=== PATIENT | male | born 1950 | race Caucasian/White ===

== ENCOUNTER 2020-11-11 19:03 | Inpatient (IN) ==
[2020-11-11] MEDS ORDERED: Isovue-370 500 ML BOTTLE IVP ONE (20:52)
[2020-11-11 21:10] LABS: Bilirubin,Urine Negative (Negative); Blood,Urine Large (Negative); Clarity,Urine Turbid (Clear); Color,Urine Light-Red (Yellow); Glucose,Urine (UA) 150 mg/dL (Normal); Ketones,Urine Negative (Negative); Leukocyte Esterase,Urine Small (Negative); Nitrite,Urine Negative (Negative); PH,Urine 6.5 pH Units (5.0-8.0); Protein,Urine 200 mg/dL (Neg-Trace); Urobilinogen,Urine Normal (Normal)
[2020-11-11 21:57] LABS: Basophils # 0.1 K/mcL (0.0-0.2); Eosinophils # 0.3 K/mcL (0.0-0.6); Hematocrit 40.9 % (37.5-50.1); Hemoglobin 13.7 g/dL (12.9-16.9); Immature Granulocytes % 0.4 % (0-4); Lymphocytes # 2.4 K/mcL (0.6-4.6); Lymphocytes % 25.2 %; Mean Corpuscular HGB Conc 33.5 g/dL (31.6-35.5); Mean Corpuscular Hemoglobin 30.6 pg (28.0-33.3); Mean Corpuscular Volume 91.3 fL (83.0-100.0); Mean Platelet Volume 10.6 fL (9.4-12.4); Monocytes % 10.1 %; Neutrophils # 5.7 K/mcL (1.6-8.9); Platelet Count 225 K/mcL (140-400); Red Blood Count 4.48 M/mcL (4.19-5.50); Red Cell Distribution Width 13.5 % (11.5-14.5); Segmented Neutrophils % 60.3 %; White Blood Count 9.5 K/mcL (4.3-11.1)
[2020-11-11 22:15] LABS: BUN/Creatinine Ratio 20 (6-26); Blood Urea Nitrogen 22 mg/dL (8-23); Calcium 9.6 mg/dL (8.6-10.3); Carbon Dioxide 22 mEq/L (23-29); Chloride 102 mEq/L (98-107); Glucose 173 mg/dL (70-105); Osmolality,Calculated 287 (280-300); Potassium 3.9 mEq/L (3.5-5.1); Sodium 135 mEq/L (136-145); eGFR For African Americans > 60 (> 60); eGFR For Non-African Americans > 60 (> 60)
[2020-11-11] MEDS ORDERED: Ondansetron 4 MG/2 ML VIAL IVP ONE (22:28)
[2020-11-11] MEDS ORDERED: 0.9 % Sodium Chloride 1,000 ML IVC SCH (23:45)
[2020-11-11] MEDS ORDERED: Naloxone 0.4 MG/ML INJ IVP PRN (23:56)
[2020-11-11] MEDS ORDERED: Acetaminophen 325 MG TABLET PO PRN (23:56)
[2020-11-12] MEDS ORDERED: *HR* HYDROmorphone (PF) 1 MG/ML SYRINGE IVP PRN ×2 (02:32→08:21)
[2020-11-12] MEDS ORDERED: *HR* Dextrose 50 % in Water (Vial) 50 ML VIAL IVP PRN (03:20)
[2020-11-12] MEDS ORDERED: Dextrose Gel 15 GM/37.5 ML TUBE PO PRN ×2 (03:20)
[2020-11-12] MEDS ORDERED: D5% in Water 1,000 ML IVC PRN (03:20)
[2020-11-12 06:33] LABS: Hematocrit 40.7 % (37.5-50.1); Hemoglobin 13.6 g/dL (12.9-16.9); Mean Corpuscular HGB Conc 33.4 g/dL (31.6-35.5); Mean Corpuscular Hemoglobin 30.2 pg (28.0-33.3); Mean Corpuscular Volume 90.4 fL (83.0-100.0); Mean Platelet Volume 11.1 fL (9.4-12.4); Platelet Count 218 K/mcL (140-400); Red Cell Distribution Width 13.6 % (11.5-14.5)
[2020-11-12 06:37] LABS: White Blood Count 14.3 K/mcL (4.3-11.1)
[2020-11-12 06:41] LABS: INR 1.1; Prothrombin Time 12.5 Seconds (9.4-12.1)
[2020-11-12 06:44] LABS: Activated Partial Thrombo Time 27.5 Seconds (26.0-36.0)
[2020-11-12 06:55] LABS: BUN/Creatinine Ratio 17 (6-26); Blood Urea Nitrogen 23 mg/dL (8-23); Calcium 9.4 mg/dL (8.6-10.3); Carbon Dioxide 24 mEq/L (23-29); Chloride 101 mEq/L (98-107); Glucose 310 mg/dL (70-105); Osmolality,Calculated 293 (280-300); Potassium 4.1 mEq/L (3.5-5.1); Sodium 134 mEq/L (136-145); eGFR For African Americans > 60 (> 60); eGFR For Non-African Americans 54 (> 60)
[2020-11-12] MEDS ORDERED: *HR* OxyCODONE Immed Rel 5 MG TABLET PO PRN (08:19)
[2020-11-12] MEDS: Insulin LISPRO 300 UNITS/3 ML VIAL SUBQ SCH ×3 (08:32→17:03)
[2020-11-12] MEDS: Ondansetron 4 MG/2 ML VIAL IVP PRN ×2 (08:41→20:58)
[2020-11-12] MEDS: *HR* OxyCODONE Immed Rel 5 MG TABLET PO PRN (10:18)
[2020-11-12] MEDS: Acetaminophen IV 1,000 MG/100 ML BAG IVPB SCH ×2 (11:45→17:03)
[2020-11-12] MEDS: amLODIPine 5 MG TABLET PO SCH (12:55)
[2020-11-12] MEDS ORDERED: Isovue-370 500 ML BOTTLE IVP ONE (13:20)
[2020-11-12] MEDS: hydrALAZINE 25 MG TABLET PO SCH ×2 (16:59→19:10)
[2020-11-12] MEDS ORDERED: Insulin LISPRO 300 UNITS/3 ML VIAL SUBQ SCH (21:00)
[2020-11-13] MEDS: Acetaminophen IV 1,000 MG/100 ML BAG IVPB SCH ×5 (00:05→19:02)
[2020-11-13] MEDS: *HR* OxyCODONE Immed Rel 5 MG TABLET PO PRN (00:05)
[2020-11-13 05:20] LABS: Basophils % 0.2 %; Hematocrit 42.4 % (37.5-50.1); Hemoglobin 14.1 g/dL (12.9-16.9); Immature Granulocytes % 0.7 % (0-4); Lymphocytes # 1.1 K/mcL (0.6-4.6); Lymphocytes % 5.4 %; Mean Corpuscular HGB Conc 33.3 g/dL (31.6-35.5); Mean Corpuscular Hemoglobin 30.7 pg (28.0-33.3); Mean Corpuscular Volume 92.4 fL (83.0-100.0); Mean Platelet Volume 10.8 fL (9.4-12.4); Monocytes # 1.9 K/mcL (0.0-1.3); Monocytes % 9.3 %; Neutrophils # 16.7 K/mcL (1.6-8.9); Platelet Count 223 K/mcL (140-400); Red Blood Count 4.59 M/mcL (4.19-5.50); Red Cell Distribution Width 14.2 % (11.5-14.5); Segmented Neutrophils % 84.4 %; White Blood Count 19.8 K/mcL (4.3-11.1)
[2020-11-13 05:43] LABS: Calcium 9.7 mg/dL (8.6-10.3)
[2020-11-13] MEDS: hydrALAZINE 25 MG TABLET PO SCH ×3 (08:27→19:48)
[2020-11-13] MEDS: amLODIPine 5 MG TABLET PO SCH (08:27)
[2020-11-13] MEDS: Insulin LISPRO 300 UNITS/3 ML VIAL SUBQ SCH ×4 (08:27→19:48)
[2020-11-13] MEDS ORDERED: Isovue-300 50ML VIAL ONE (08:49)
[2020-11-13] MEDS ORDERED: *HR* Propofol 200 MG/20 ML VIAL IVP ONE (08:50)
[2020-11-13] MEDS ORDERED: *HR* FentaNYL (PF) 100 MCG/2 ML VIAL ONE ×2 (08:50→11:24)
[2020-11-13] MEDS ORDERED: Ascorbic Acid 500 MG TABLET PO SCH (09:00)
[2020-11-13] MEDS ORDERED: NON-FORMULARY MEDICATION 1 EACH EACH (Atorvastatin Calcium [Lipitor] 20 MG Tablet) PO SCH (09:00)
[2020-11-13] MEDS ORDERED: DilTIAZem CD (24hr) 120 MG CAP.ER.24H PO SCH (09:00)
[2020-11-13] MEDS ORDERED: Lidocaine -MPF 2% 2 ML VIAL ONE (09:20)
[2020-11-13] MEDS ORDERED: Ondansetron 4 MG/2 ML VIAL ONE (09:20)
[2020-11-13] MEDS ORDERED: *HR* OxyCODONE Immed Rel 5 MG TABLET PO PRN ×3 (09:32→12:38)
[2020-11-13] MEDS ORDERED: Ondansetron 4 MG/2 ML VIAL IVP PRN ×2 (09:32→12:38)
[2020-11-13] MEDS ORDERED: Morphine Sulfate 2 MG/ML SYRINGE IVP PRN (09:32)
[2020-11-13] MEDS ORDERED: CeFAZolin Syr 2,000MG/20 ML 2,000 MG/20 ML SYRINGE IVPB ONE (10:00)
[2020-11-13 10:03] LABS: Adenovirus Not Detected (Not Detect); Bordetella Pertussis Not Detected (Not Detect); Chlamydophila pneumoniae Not Detected (Not Detect); Coronavirus 229E Not Detected (Not Detect); Coronavirus HKU1 Not Detected (Not Detect); Coronavirus NL63 Not Detected (Not Detect); Coronavirus OC43 Not Detected (Not Detect); Human Metapneumovirus Not Detected (Not Detect); Human Rhinovirus/Enterovirus Not Detected (Not Detect); Influenza A Subtype 2009 H1 Not Detected (Not Detect); Influenza B Not Detected (Not Detect); Mycoplasma pneumoniae Not Detected (Not Detect); Parainfluenza Virus 1 Not Detected (Not Detect); Parainfluenza Virus 2 Not Detected (Not Detect); Parainfluenza Virus 3 Not Detected (Not Detect); Parainfluenza Virus 4 Not Detected (Not Detect); Respiratory Syncytial Virus Not Detected (Not Detect); SARS-CoV-2 Not Detected (Not Detect)
[2020-11-13] MEDS ORDERED: 0.9 % Sodium Chloride 1,000 ML IVC SCH (11:15)
[2020-11-13] MEDS ORDERED: *HR* HYDROmorphone (PF) 1 MG/ML SYRINGE IVP PRN (12:38)
[2020-11-13] MEDS ORDERED: Dextrose Gel 15 GM/37.5 ML TUBE PO PRN ×2 (12:38)
[2020-11-13] MEDS ORDERED: *HR* Dextrose 50 % in Water (Vial) 50 ML VIAL IVP PRN (12:38)
[2020-11-13] MEDS ORDERED: Naloxone 0.4 MG/ML INJ IVP PRN (12:38)
[2020-11-13] MEDS ORDERED: D5% in Water 1,000 ML IVC PRN (12:38)
[2020-11-13] MEDS: 0.9 % Sodium Chloride 1,000 ML IVC SCH ×2 (13:44→23:52)
[2020-11-13] MEDS: Piperacillin/Tazobactam 3.375 GM in 0.9 % Sodium Chloride Mini Bag 100 ML IVPB SCH (16:44)
[2020-11-13 19:10] LABS: Bilirubin,Urine Negative (Negative); Blood,Urine Large (Negative); Clarity,Urine Clear (Clear); Color,Urine Light-Orange (Yellow); Glucose,Urine (UA) 200 mg/dL (Normal); Ketones,Urine Trace mg/dL (Negative); Leukocyte Esterase,Urine Small (Negative); Nitrite,Urine Negative (Negative); PH,Urine 6.5 pH Units (5.0-8.0); Protein,Urine >=300 mg/dL (Neg-Trace); RBC,Urine TNTC per hpf (0-3); Specific Gravity,Urine > 1.030 (1.010-1.025); Urobilinogen,Urine Normal (Normal); WBC,Urine TNTC per hpf (0-3)
[2020-11-13] MEDS: Insulin DETEMIR 100 UNIT/ML X5UNITS SUBQ SCH (19:48)
[2020-11-13] MEDS ORDERED: Insulin DETEMIR 100 UNIT/ML X5UNITS SUBQ SCH (21:00)
[2020-11-14] MEDS: Acetaminophen IV 1,000 MG/100 ML BAG IVPB SCH ×2 (00:16→05:56)
[2020-11-14] MEDS: Piperacillin/Tazobactam 3.375 GM in 0.9 % Sodium Chloride Mini Bag 100 ML IVPB SCH ×3 (02:37→18:34)
[2020-11-14 03:13] LABS: Basophils # 0.1 K/mcL (0.0-0.2); Basophils % 0.4 %; Eosinophils # 0.1 K/mcL (0.0-0.6); Eosinophils % 0.5 %; Hematocrit 38.6 % (37.5-50.1); Hemoglobin 12.8 g/dL (12.9-16.9); Immature Granulocytes % 0.7 % (0-4); Lymphocytes # 1.7 K/mcL (0.6-4.6); Lymphocytes % 10.2 %; Mean Corpuscular HGB Conc 33.2 g/dL (31.6-35.5); Mean Corpuscular Hemoglobin 30.9 pg (28.0-33.3); Mean Corpuscular Volume 93.2 fL (83.0-100.0); Mean Platelet Volume 10.8 fL (9.4-12.4); Monocytes # 1.6 K/mcL (0.0-1.3); Monocytes % 9.3 %; Neutrophils # 13.2 K/mcL (1.6-8.9); Platelet Count 193 K/mcL (140-400); Red Blood Count 4.14 M/mcL (4.19-5.50); Red Cell Distribution Width 14.1 % (11.5-14.5); Segmented Neutrophils % 78.9 %; White Blood Count 16.7 K/mcL (4.3-11.1)
[2020-11-14 03:33] LABS: Calcium 8.7 mg/dL (8.6-10.3); Potassium 3.6 mEq/L (3.5-5.1)
[2020-11-14] MEDS: Ascorbic Acid 500 MG TABLET PO SCH (07:52)
[2020-11-14] MEDS: hydrALAZINE 25 MG TABLET PO SCH ×3 (07:53→20:01)
[2020-11-14] MEDS: DilTIAZem CD (24hr) 120 MG CAP.ER.24H PO SCH (07:53)
[2020-11-14] MEDS: Insulin LISPRO 300 UNITS/3 ML VIAL SUBQ SCH ×4 (07:54→20:02)
[2020-11-14] MEDS ORDERED: amLODIPine 5 MG TABLET PO SCH (09:00)
[2020-11-14] MEDS ORDERED: Acetaminophen 325 MG TABLET PO PRN (09:58)
[2020-11-14] MEDS: 0.9 % Sodium Chloride 1,000 ML IVC SCH (16:58)
[2020-11-14] MEDS: Insulin DETEMIR 100 UNIT/ML X5UNITS SUBQ SCH (20:03)
[2020-11-15 02:21] LABS: Basophils % 0.3 %; Eosinophils # 0.1 K/mcL (0.0-0.6); Eosinophils % 0.8 %; Hematocrit 38.9 % (37.5-50.1); Hemoglobin 12.7 g/dL (12.9-16.9); Immature Granulocytes % 0.7 % (0-4); Lymphocytes # 1.7 K/mcL (0.6-4.6); Lymphocytes % 12.8 %; Mean Corpuscular HGB Conc 32.6 g/dL (31.6-35.5); Mean Platelet Volume 10.4 fL (9.4-12.4); Monocytes # 1.2 K/mcL (0.0-1.3); Neutrophils # 9.9 K/mcL (1.6-8.9); Platelet Count 191 K/mcL (140-400); Red Blood Count 4.23 M/mcL (4.19-5.50); Red Cell Distribution Width 13.9 % (11.5-14.5); Segmented Neutrophils % 76.4 %; White Blood Count 12.9 K/mcL (4.3-11.1)
[2020-11-15] MEDS: Piperacillin/Tazobactam 3.375 GM in 0.9 % Sodium Chloride Mini Bag 100 ML IVPB SCH ×2 (02:22→11:26)
[2020-11-15 02:39] LABS: BUN/Creatinine Ratio 21 (6-26); Blood Urea Nitrogen 25 mg/dL (8-23); Calcium 8.6 mg/dL (8.6-10.3); Carbon Dioxide 25 mEq/L (23-29); Chloride 104 mEq/L (98-107); Glucose 225 mg/dL (70-105); Osmolality,Calculated 295 (280-300); Potassium 3.6 mEq/L (3.5-5.1); Sodium 137 mEq/L (136-145); eGFR For African Americans > 60 (> 60); eGFR For Non-African Americans > 60 (> 60)
[2020-11-15] MEDS: 0.9 % Sodium Chloride 1,000 ML IVC SCH (03:33)
[2020-11-15] MEDS: DilTIAZem CD (24hr) 120 MG CAP.ER.24H PO SCH (07:43)
[2020-11-15] MEDS: Ascorbic Acid 500 MG TABLET PO SCH (07:43)
[2020-11-15] MEDS: Insulin LISPRO 300 UNITS/3 ML VIAL SUBQ SCH ×2 (07:44→11:27)
[2020-11-15] MEDS: hydrALAZINE 25 MG TABLET PO SCH (07:44)
[2020-11-15 11:10] VITALS: BP 167/79
== END 2020-11-15 13:19 | disposition home or self-care (01) | DRG 660 ==
LOC: EMEROOARM 19:03 → 2ANU 19:03 → SUATTDRO 23:53 → 2ANU 11-12 00:45 → SUATTDRO 11-12 11:27
PROVIDERS: ADMIT Internal Medicine; ATTEND Internal Medicine

== ENCOUNTER 2020-12-13 07:44 | Inpatient (IN) ==
[2020-12-13] MEDS ORDERED: CeFAZolin Syr 2,000MG/20 ML 2,000 MG/20 ML SYRINGE IVPB ONE (08:16)
[2020-12-13] MEDS ORDERED: Ringers Solution, Lactated 1,000 ML IVC SCH ×2 (08:30→09:15)
[2020-12-13] MEDS ORDERED: Acetaminophen IV 1,000 MG/100 ML BAG IVPB PRN (09:04)
[2020-12-13] MEDS ORDERED: *HR* OxyCODONE Immed Rel 5 MG TABLET PO PRN ×2 (09:04→18:12)
[2020-12-13] MEDS ORDERED: Ondansetron 4 MG/2 ML VIAL IVP PRN ×2 (09:04→16:27)
[2020-12-13] MEDS ORDERED: *HR* HYDROmorphone PF 0.5 MG/0.5 ML SYRINGE IVP PRN (09:04)
[2020-12-13] MEDS ORDERED: Lidocaine -MPF 2% 2 ML VIAL ONE (09:12)
[2020-12-13] MEDS ORDERED: *HR* Propofol 200 MG/20 ML VIAL IVP ONE (09:12)
[2020-12-13] MEDS ORDERED: *HR* FentaNYL (PF) 100 MCG/2 ML VIAL ONE ×2 (09:12→14:49)
[2020-12-13] MEDS ORDERED: *HR* Rocuronium Bromide 50 MG/5 ML VIAL ONE ×3 (09:12→11:52)
[2020-12-13] MEDS ORDERED: Lidocaine -MPF 4% 5 ML AMPUL ONE (09:16)
[2020-12-13] MEDS ORDERED: Albumin Human 5% 25.0 GM/500 ML IV.SOLN ONE (09:53)
[2020-12-13] MEDS ORDERED: Dexmedetomidine HCl 400 MCG/100 ML MLS IVC ONE (09:54)
[2020-12-13] MEDS ORDERED: *HR* Norepinephrine 4 MG/4 ML VIAL IVC ONE (10:04)
[2020-12-13] MEDS ORDERED: Acetaminophen IV 1,000 MG/100 ML BAG IVPB ONE (10:04)
[2020-12-13] MEDS ORDERED: *HR* HYDROMORPHONE 2 MG/ML VIAL ONE (11:57)
[2020-12-13 14:21] LABS: VBG Base Excess -4 mEq/L; VBG Chloride 104 mEq/L (98-107); VBG Glucose 323 mg/dl (65-95); VBG HCO3 23 mEq/L (21-27); VBG Ionized Calcium 1.14 mmol/L (1.15-1.35); VBG Oxygen Saturation 93 %; VBG PCO2 45 mmHg (41-51); VBG PO2 74 mmHg (25-50); VBG Total CO2 24 mEq/L
[2020-12-13] MEDS ORDERED: Acetaminophen 325 MG TABLET PO PRN (16:27)
[2020-12-13] MEDS ORDERED: *HR* OxyCODONE/APAP 10/325 TABLET PO PRN (16:27)
[2020-12-13] MEDS ORDERED: CeFAZolin 2 GM/120 ML BAG IVPB SCH (16:27)
[2020-12-13] MEDS ORDERED: Dextrose Gel 15 GM/37.5 ML TUBE PO PRN ×2 (16:27)
[2020-12-13] MEDS ORDERED: D5% in Water 1,000 ML IVC PRN (16:27)
[2020-12-13] MEDS ORDERED: *HR* Dextrose 50 % in Water (Vial) 50 ML VIAL IVP PRN (16:27)
[2020-12-13] MEDS ORDERED: Naloxone 0.4 MG/ML INJ IVP PRN (16:27)
[2020-12-13] MEDS: 0.9 % Sodium Chloride 1,000 ML IVC SCH (17:05)
[2020-12-13] MEDS ORDERED: CeFAZolin 2,000 MG/50 ML BAG IVPB SCH (18:00)
[2020-12-13] MEDS ORDERED: *HR* HYDROmorphone (PF) 1 MG/ML SYRINGE IVP PRN (18:12)
[2020-12-13] MEDS: Insulin LISPRO 300 UNITS/3 ML VIAL SUBQ SCH (18:30)
[2020-12-13] MEDS: Acetaminophen IV 1,000 MG/100 ML BAG IVPB SCH (18:55)
[2020-12-13 19:30] LABS: Basophils % 0.1 %; Hematocrit 33.4 % (37.5-50.1); Hemoglobin 11.1 g/dL (12.9-16.9); Immature Granulocytes % 0.6 % (0-4); Lymphocytes # 0.5 K/mcL (0.6-4.6); Lymphocytes % 4.3 %; Mean Corpuscular HGB Conc 33.2 g/dL (31.6-35.5); Mean Corpuscular Hemoglobin 30.7 pg (28.0-33.3); Mean Corpuscular Volume 92.5 fL (83.0-100.0); Mean Platelet Volume 10.9 fL (9.4-12.4); Monocytes # 0.7 K/mcL (0.0-1.3); Monocytes % 5.9 %; Neutrophils # 11.1 K/mcL (1.6-8.9); Platelet Count 147 K/mcL (140-400); Red Blood Count 3.61 M/mcL (4.19-5.50); Segmented Neutrophils % 89.1 %; White Blood Count 12.5 K/mcL (4.3-11.1)
[2020-12-14] MEDS: 0.9 % Sodium Chloride 1,000 ML IVC SCH ×3 (01:15→23:39)
[2020-12-14] MEDS: Acetaminophen IV 1,000 MG/100 ML BAG IVPB SCH ×3 (01:16→17:15)
[2020-12-14 06:29] LABS: Basophils % 0.1 %; Hematocrit 29.9 % (37.5-50.1); Hemoglobin 9.8 g/dL (12.9-16.9); Immature Granulocytes % 0.3 % (0-4); Lymphocytes # 1.1 K/mcL (0.6-4.6); Lymphocytes % 8.1 %; Mean Corpuscular HGB Conc 32.8 g/dL (31.6-35.5); Mean Corpuscular Hemoglobin 29.8 pg (28.0-33.3); Mean Corpuscular Volume 90.9 fL (83.0-100.0); Mean Platelet Volume 10.8 fL (9.4-12.4); Monocytes # 1.2 K/mcL (0.0-1.3); Monocytes % 9.3 %; Neutrophils # 10.8 K/mcL (1.6-8.9); Platelet Count 157 K/mcL (140-400); Red Blood Count 3.29 M/mcL (4.19-5.50); Red Cell Distribution Width 14.1 % (11.5-14.5); Segmented Neutrophils % 82.2 %; White Blood Count 13.2 K/mcL (4.3-11.1)
[2020-12-14 06:44] LABS: Calcium 8.2 mg/dL (8.6-10.3); Potassium 4.2 mEq/L (3.5-5.1)
[2020-12-14] MEDS: DilTIAZem CD (24hr) 180 MG CAP.ER.24H PO SCH (08:09)
[2020-12-14] MEDS: Insulin LISPRO 300 UNITS/3 ML VIAL SUBQ SCH ×3 (08:10→17:08)
[2020-12-14] MEDS: *HR* Heparin 5,000 UNIT/ML VIAL SQ SCH ×2 (10:03→17:27)
[2020-12-14] MEDS: ceFAZolin 2,000 MG in 0.9 % Sodium Chloride 100 ML IVPB SCH (17:18)
[2020-12-15] MEDS: Acetaminophen IV 1,000 MG/100 ML BAG IVPB SCH (01:15)
[2020-12-15] MEDS: ceFAZolin 2,000 MG in 0.9 % Sodium Chloride 100 ML IVPB SCH (01:15)
[2020-12-15 04:58] LABS: Hematocrit 29.4 % (37.5-50.1); Hemoglobin 9.6 g/dL (12.9-16.9); Mean Corpuscular HGB Conc 32.7 g/dL (31.6-35.5); Mean Corpuscular Hemoglobin 29.9 pg (28.0-33.3); Mean Corpuscular Volume 91.6 fL (83.0-100.0); Mean Platelet Volume 10.9 fL (9.4-12.4); Platelet Count 131 K/mcL (140-400); Red Blood Count 3.21 M/mcL (4.19-5.50); Red Cell Distribution Width 14.1 % (11.5-14.5); White Blood Count 12.8 K/mcL (4.3-11.1)
[2020-12-15 05:14] LABS: Calcium 8.5 mg/dL (8.6-10.3); Potassium 3.7 mEq/L (3.5-5.1)
[2020-12-15] MEDS: *HR* Heparin 5,000 UNIT/ML VIAL SQ SCH ×2 (05:41→17:33)
[2020-12-15] MEDS ORDERED: Bisacodyl 10 MG RECTAL SUPPOSITORY RC ONE (06:53)
[2020-12-15] MEDS: *HR* Pioglitazone 45 MG TABLET PO SCH (08:01)
[2020-12-15] MEDS: hydroCHLOROthiazide 25 MG TABLET PO SCH (08:01)
[2020-12-15] MEDS: DilTIAZem CD (24hr) 180 MG CAP.ER.24H PO SCH (08:02)
[2020-12-15] MEDS: *HR* Metformin 850 MG TABLET PO SCH ×2 (08:03→17:33)
[2020-12-15] MEDS: Insulin LISPRO 300 UNITS/3 ML VIAL SUBQ SCH ×3 (08:03→17:30)
[2020-12-15] MEDS: Acetaminophen 325 MG TABLET PO SCH ×2 (12:06→17:34)
[2020-12-16] MEDS: Acetaminophen 325 MG TABLET PO SCH ×2 (00:20→05:44)
[2020-12-16] MEDS: *HR* Heparin 5,000 UNIT/ML VIAL SQ SCH (05:43)
[2020-12-16 08:05] VITALS: BP 146/78
[2020-12-16] MEDS: 0.9 % Sodium Chloride 1,000 ML IVC SCH (09:20)
[2020-12-16] MEDS: Insulin LISPRO 300 UNITS/3 ML VIAL SUBQ SCH (09:54)
[2020-12-16] MEDS: *HR* Pioglitazone 45 MG TABLET PO SCH (09:55)
[2020-12-16] MEDS: DilTIAZem CD (24hr) 180 MG CAP.ER.24H PO SCH (09:55)
[2020-12-16] MEDS: hydroCHLOROthiazide 25 MG TABLET PO SCH (09:56)
[2020-12-16] MEDS: *HR* Metformin 850 MG TABLET PO SCH (09:56)
== END 2020-12-16 10:41 | disposition home or self-care (01) | DRG 656 ==
LOC: SAMDAY 07:44 → 3ANU 16:26
PROVIDERS: ADMIT Urology; ATTEND Urology

== ENCOUNTER 2021-01-15 17:15 | Inpatient (IN) ==
[2021-01-15] MEDS ORDERED: Melatonin 3 MG TABLET PO PRN (21:12)
[2021-01-15] MEDS ORDERED: *HR* HYDROcodone/Acet 5/325 mg TABLET PO PRN (21:12)
[2021-01-15] MEDS ORDERED: Ondansetron 4 MG/2 ML VIAL IVP PRN (21:12)
[2021-01-15] MEDS ORDERED: Acetaminophen 325 MG TABLET PO PRN (21:12)
[2021-01-15] MEDS ORDERED: Naloxone 0.4 MG/ML INJ IVP PRN (21:12)
[2021-01-15] MEDS ORDERED: D5% in Water 1,000 ML IVC PRN (21:56)
[2021-01-15] MEDS ORDERED: Dextrose Gel 15 GM/37.5 ML TUBE PO PRN ×2 (21:56)
[2021-01-15] MEDS ORDERED: *HR* Dextrose 50 % in Water (Vial) 50 ML VIAL IVP PRN (21:56)
[2021-01-15] MEDS: *HR* HYDROcodone/Acet 5/325 mg TABLET PO PRN (22:16)
[2021-01-16] MEDS: Insulin LISPRO 300 UNITS/3 ML VIAL SUBQ SCH ×5 (00:59→21:16)
[2021-01-16 02:57] LABS: Basophils % 0.3 %; Eosinophils % 0.4 %; Hematocrit 33.5 % (37.5-50.1); Hemoglobin 11.3 g/dL (12.9-16.9); Immature Granulocytes % 0.4 % (0-4); Lymphocytes # 1.5 K/mcL (0.6-4.6); Lymphocytes % 13.3 %; Mean Corpuscular HGB Conc 33.7 g/dL (31.6-35.5); Mean Corpuscular Hemoglobin 30.4 pg (28.0-33.3); Mean Corpuscular Volume 90.1 fL (83.0-100.0); Mean Platelet Volume 10.5 fL (9.4-12.4); Monocytes # 1.2 K/mcL (0.0-1.3); Monocytes % 10.7 %; Neutrophils # 8.6 K/mcL (1.6-8.9); Platelet Count 178 K/mcL (140-400); Red Blood Count 3.72 M/mcL (4.19-5.50); Red Cell Distribution Width 14.1 % (11.5-14.5); Segmented Neutrophils % 74.9 %; White Blood Count 11.4 K/mcL (4.3-11.1)
[2021-01-16 03:09] LABS: Calcium 9.4 mg/dL (8.6-10.3)
[2021-01-16] MEDS: *HR* HYDROcodone/Acet 5/325 mg TABLET PO PRN (05:55)
[2021-01-16] MEDS: *HR* OxyCODONE/APAP 5/325 TABLET PO PRN ×2 (10:14→17:36)
[2021-01-16] MEDS: DilTIAZem CD (24hr) 180 MG CAP.ER.24H PO SCH (15:15)
[2021-01-17] MEDS: *HR* OxyCODONE/APAP 5/325 TABLET PO PRN (04:21)
[2021-01-17 05:33] LABS: Hemoglobin 12.7 g/dL (12.9-16.9); Mean Corpuscular HGB Conc 32.6 g/dL (31.6-35.5); Mean Corpuscular Hemoglobin 29.7 pg (28.0-33.3); Mean Corpuscular Volume 91.3 fL (83.0-100.0); Mean Platelet Volume 10.6 fL (9.4-12.4); Platelet Count 190 K/mcL (140-400); Red Blood Count 4.27 M/mcL (4.19-5.50); Red Cell Distribution Width 14.2 % (11.5-14.5); White Blood Count 10.6 K/mcL (4.3-11.1)
[2021-01-17 05:44] LABS: Calcium 9.8 mg/dL (8.6-10.3); Potassium 4.2 mEq/L (3.5-5.1)
[2021-01-17 05:49] LABS: Prothrombin Time 11.9 Seconds (9.4-12.1)
[2021-01-17] MEDS ORDERED: Morphine Sulfate 2 MG/ML SYRINGE IVP PRN (08:16)
[2021-01-17] MEDS: DilTIAZem CD (24hr) 180 MG CAP.ER.24H PO SCH (09:05)
[2021-01-17] MEDS: Aspirin 81 MG TAB.CHEW PO SCH (09:06)
[2021-01-17] MEDS: Ascorbic Acid 500 MG TABLET PO SCH (09:06)
[2021-01-17] MEDS: Insulin LISPRO 300 UNITS/3 ML VIAL SUBQ SCH ×4 (09:07→21:53)
[2021-01-17] MEDS: *HR* HYDROcodone/Acet 5/325 mg TABLET PO PRN (09:24)
[2021-01-17] MEDS ORDERED: *HR* HYDROmorphone (PF) 1 MG/ML SYRINGE IVP PRN (12:11)
[2021-01-17] MEDS ORDERED: *HR* HYDROmorphone (PF) 1 MG/ML SYRINGE IVP STA (12:11)
[2021-01-17] MEDS ORDERED: *HR* FentaNYL (PF) 100 MCG/2 ML VIAL ONE ×2 (14:29→15:39)
[2021-01-17] MEDS ORDERED: Ondansetron 4 MG/2 ML VIAL ONE (14:29)
[2021-01-17] MEDS ORDERED: Lidocaine -MPF 2% 2 ML VIAL ONE (14:29)
[2021-01-17] MEDS ORDERED: *HR* Midazolam HCl 2 MG/2 ML VIAL ONE (14:30)
[2021-01-17] MEDS ORDERED: *HR* Propofol 200 MG/20 ML VIAL IVP ONE (14:30)
[2021-01-17] MEDS ORDERED: *HR* Succinylcholine 200 MG/10 ML VIAL IVP ONE (14:33)
[2021-01-17] MEDS ORDERED: Ondansetron 4 MG/2 ML VIAL IVP PRN ×2 (15:04→17:05)
[2021-01-17] MEDS ORDERED: Nitroglycerin 0.4 MG TAB.SUBL SL PRN (15:04)
[2021-01-17] MEDS ORDERED: Naloxone 0.4 MG/ML INJ IVP PRN (15:04)
[2021-01-17] MEDS ORDERED: Albuterol 2.5 MG/3 ML NEBULIZER IH PRN (15:04)
[2021-01-17] MEDS ORDERED: *HR* Rocuronium Bromide 50 MG/5 ML VIAL ONE (15:40)
[2021-01-17] MEDS ORDERED: ceFAZolin 2,000 MG in Water for inj. (sterile) 20 ML IVP ONE (15:47)
[2021-01-17] MEDS ORDERED: Sugammadex Sodium 200 MG/2 ML VIAL IV ONE (16:11)
[2021-01-17] MEDS ORDERED: Acetaminophen IV 1,000 MG/100 ML BAG IVPB ONE (16:12)
[2021-01-17] MEDS ORDERED: Acetaminophen IV 0 MG/0 ML BAG IVPB ONE (16:20)
[2021-01-17] MEDS ORDERED: Sennosides 8.6 MG TABLET PO PRN (17:05)
[2021-01-17] MEDS ORDERED: MOM Conc 10 ML UD.LIQ PO PRN (17:05)
[2021-01-17] MEDS: *HR* HYDROmorphone (PF) 1 MG/ML SYRINGE IVP PRN ×4 (17:25→17:40)
[2021-01-17] MEDS: *HR* FentaNYL (PF) 100 MCG/2 ML VIAL IVP PRN ×3 (17:45→17:54)
[2021-01-17] MEDS: Ringers Solution, Lactated 1,000 ML IVC SCH (19:00)
[2021-01-17] MEDS ORDERED: *HR* Metoprolol 5 MG/5 ML VIAL IVP ONE (21:56)
[2021-01-18] MEDS: CeFAZolin 2 GM/120 ML BAG IVPB SCH ×2 (01:15→08:36)
[2021-01-18] MEDS ORDERED: *HR* Metoprolol 5 MG/5 ML VIAL IVP ONE (04:01)
[2021-01-18 05:32] LABS: Hematocrit 36.5 % (37.5-50.1); Hemoglobin 12.1 g/dL (12.9-16.9)
[2021-01-18 07:31] LABS: Calcium 9.5 mg/dL (8.6-10.3); Potassium 4.4 mEq/L (3.5-5.1)
[2021-01-18] MEDS: Ascorbic Acid 500 MG TABLET PO SCH (08:31)
[2021-01-18] MEDS: Aspirin 81 MG TAB.CHEW PO SCH (08:34)
[2021-01-18] MEDS: DilTIAZem CD (24hr) 180 MG CAP.ER.24H PO SCH (08:35)
[2021-01-18] MEDS: Insulin LISPRO 300 UNITS/3 ML VIAL SUBQ SCH ×2 (08:37→11:20)
[2021-01-18] MEDS: Ringers Solution, Lactated 1,000 ML IVC SCH (08:50)
[2021-01-18] MEDS ORDERED: hydroCHLOROthiazide 25 MG TABLET PO SCH (09:00)
[2021-01-18 10:40] VITALS: BP 132/77
== END 2021-01-18 15:29 | disposition home health service (06) | DRG 493 ==
LOC: 3ANU → SUATTDRO 20:42
PROVIDERS: ADMIT Internal Medicine; ATTEND Student in an Organized Health Care Education/Training Program

== ENCOUNTER 2021-09-10 14:30 | Inpatient (IN) ==
[2021-09-10] MEDS ORDERED: Gadolinium Contrast Agent (WT Based) IV PRN (17:42)
[2021-09-10] MEDS ORDERED: 0.9 % Sodium Chloride 1,000 ML IVC ONE (18:25)
[2021-09-10] MEDS ORDERED: Ondansetron 4 MG/2 ML VIAL IVP ONE ×2 (18:25→20:25)
[2021-09-10] MEDS ORDERED: Ondansetron 4 MG/2 ML VIAL IVP STA (20:24)
[2021-09-10] MEDS ORDERED: Naloxone 0.4 MG/ML INJ IVP PRN (22:29)
[2021-09-10] MEDS ORDERED: *HR* OxyCODONE Immed Rel 5 MG TABLET PO PRN (22:29)
[2021-09-10] MEDS ORDERED: Ringers Solution, Lactated 1,000 ML IVC ONE (22:31)
[2021-09-10] MEDS ORDERED: Prochlorperazine 10 MG/2 ML VIAL IVP ONE (22:31)
[2021-09-10] MEDS: Acetaminophen 325 MG TABLET PO PRN (22:52)
[2021-09-10] MEDS ORDERED: D5% in Water 1,000 ML IVC PRN (23:32)
[2021-09-10] MEDS ORDERED: Dextrose Gel 15 GM/37.5 ML TUBE PO PRN ×2 (23:32)
[2021-09-11 00:36] LABS: Hematocrit 35.5 % (37.5-50.1); Hemoglobin 11.9 g/dL (12.9-16.9); Mean Corpuscular HGB Conc 33.5 g/dL (31.6-35.5); Mean Corpuscular Hemoglobin 29.7 pg (28.0-33.3); Mean Corpuscular Volume 88.5 fL (83.0-100.0); Mean Platelet Volume 9.5 fL (9.4-12.4); Platelet Count 185 K/mcL (140-400); Red Blood Count 4.01 M/mcL (4.19-5.50); Red Cell Distribution Width 17.2 % (11.5-14.5); White Blood Count 9.4 K/mcL (4.3-11.1)
[2021-09-11] MEDS: Ringers Solution, Lactated 1,000 ML IVC SCH ×2 (00:45→05:15)
[2021-09-11 01:03] LABS: Adenovirus F 40/41 PCR Not detected (Not detect); Astrovirus PCR Not detected (Not detect); C.difficile Toxin A/B Gene PCR Not detected (Not detect); Campylobacter by PCR Not detected (Not detect); Cryptosporidium by PCR Not detected (Not detect); Cyclospora cayetanensis PCR Not detected (Not detect); E. coli O157 by PCR Not detected (Not detect); Entamoeba histolytica PCR Not detected (Not detect); Enteroaggregative E.coli(EAEC) Not detected (Not detect); Enteropathogenic E.coli(EPEC) Not detected (Not detect); Enterotoxigenic E.coli (ETEC) Not detected (Not detect); Giardia lamblia PCR Not detected (Not detect); Norovirus GI/GII PCR DETECTED (Not detect); Plesiomonas shigelloides PCR Not detected (Not detect); Rotavirus A PCR Not detected (Not detect); Salmonella PCR Not detected (Not detect); Sapovirus PCR Not detected (Not detect); Shig/EnteroinvasiveE coli EIEC Not detected (Not detect); Shigalike tox-prod E coli STEC Not detected (Not detect); Vibrio PCR Not detected (Not detect); Vibrio cholerae PCR Not detected (Not detect); Yersinia enterocolitica PCR Not detected (Not detect)
[2021-09-11] MEDS: MetroNIDAZOLE 500 MG/100 ML 500 MG/100 ML BAG IVPB SCH ×3 (01:04→12:26)
[2021-09-11 01:05] LABS: Eosinophils # 0.4 K/mcL (0.0-0.6); Lymphocytes # 1.9 K/mcL (0.6-4.6); Monocytes # 1.1 K/mcL (0.0-1.3); Platelet Estimate Normal (Normal); Reactive Lymphocytes Present (Not Present)
[2021-09-11 01:38] LABS: Influenza A PCR Negative (Negative); Influenza B PCR Negative (Negative); Resp. Syncytial Virus PCR Negative (Negative)
[2021-09-11 01:40] LABS: Albumin 3.4 g/dL (3.5-5.7); Albumin/Globulin Ratio 1.4 (1.1-2.2); Bilirubin,Total 1.5 mg/dL (0.3-1.0); Calcium 7.9 mg/dL (8.6-10.3); Globulin 2.4 g/dL (2.4-3.5); Magnesium 1.3 mg/dL (1.6-2.6); Potassium 3.6 mEq/L (3.5-5.1); Total Protein 5.8 g/dL (6.4-8.9)
[2021-09-11 01:42] LABS: SARS-CoV-2 by PCR (In House) Positive (Negative)
[2021-09-11] MEDS ORDERED: Ringers Solution, Lactated 1,000 ML IVC ONE (01:46)
[2021-09-11] MEDS: *HR* Heparin 5,000 UNIT/ML VIAL SQ SCH ×3 (05:16→21:37)
[2021-09-11] MEDS: Acetaminophen 325 MG TABLET PO PRN ×2 (05:20→22:30)
[2021-09-11] MEDS: Insulin LISPRO 300 UNITS/3 ML VIAL SUBQ SCH ×4 (09:36→21:37)
[2021-09-11] MEDS: Aspirin 81 MG TAB.CHEW PO SCH (09:40)
[2021-09-11] MEDS: DilTIAZem CD (24hr) 180 MG CAP.ER.24H PO SCH (09:40)
[2021-09-11] MEDS: Ondansetron 4 MG/2 ML VIAL IVP PRN ×2 (09:42→22:29)
[2021-09-11 13:34] LABS: Bacteria,Urine Few per hpf (None-Few); Bilirubin,Urine Negative (Negative); Blood,Urine Moderate (Negative); Clarity,Urine Turbid (Clear); Color,Urine Yellow (Yellow); Glucose,Urine (UA) Normal (Normal); Granular Casts,Urine Few per lpf (None Seen); Hyaline Casts,Urine Few per lpf (None Seen); Ketones,Urine Negative (Negative); Leukocyte Esterase,Urine Large (Negative); Mucus,Urine Moderate per lpf (None-Few); Nitrite,Urine Negative (Negative); Protein,Urine 200 mg/dL (Neg-Trace); Renal Epithelial Cells,Urine Few per hpf (None-Few); Specific Gravity,Urine 1.022 (1.010-1.025); Squamous Epithelial Cell,Urine Few per hpf (None-Few); Urobilinogen,Urine Normal (Normal); WBC,Urine TNTC per hpf (0-3)
[2021-09-11] MEDS: Sodium Bicarbonate 75 MEQ in 0.45 % Sodium Chloride 1,000 ML IVC SCH ×2 (14:12→22:30)
[2021-09-11 14:23] LABS: Protein/Creatinine Ratio,Urine 1.31 mg/mg (0.00-0.20); Sodium, Urine 45.9 mEq/L
[2021-09-11] MEDS: Insulin DETEMIR 100 UNIT/ML X5UNITS SUBQ SCH (21:37)
[2021-09-12] MEDS: *HR* Heparin 5,000 UNIT/ML VIAL SQ SCH ×3 (05:12→21:12)
[2021-09-12 05:27] LABS: Hematocrit 31.9 % (37.5-50.1); Hemoglobin 10.5 g/dL (12.9-16.9); Mean Corpuscular HGB Conc 32.9 g/dL (31.6-35.5); Mean Corpuscular Hemoglobin 29.6 pg (28.0-33.3); Mean Corpuscular Volume 89.9 fL (83.0-100.0); Platelet Count 165 K/mcL (140-400); Red Blood Count 3.55 M/mcL (4.19-5.50); Red Cell Distribution Width 16.8 % (11.5-14.5); White Blood Count 5.7 K/mcL (4.3-11.1)
[2021-09-12 05:33] LABS: Albumin 3.1 g/dL (3.5-5.7); Albumin/Globulin Ratio 1.6 (1.1-2.2); Bilirubin,Direct 0.3 mg/dL (0.0-0.2); Bilirubin,Indirect 0.9 mg/dL (0.0-1.0); Bilirubin,Total 1.2 mg/dL (0.3-1.0); Calcium 7.4 mg/dL (8.6-10.3); Magnesium 1.8 mg/dL (1.6-2.6); Total Protein 5.1 g/dL (6.4-8.9)
[2021-09-12] MEDS: Aspirin 81 MG TAB.CHEW PO SCH (08:56)
[2021-09-12] MEDS: DilTIAZem CD (24hr) 180 MG CAP.ER.24H PO SCH (08:57)
[2021-09-12] MEDS: Acetaminophen 325 MG TABLET PO PRN ×2 (09:02→21:12)
[2021-09-12] MEDS: Insulin LISPRO 300 UNITS/3 ML VIAL SUBQ SCH ×4 (09:08→21:12)
[2021-09-12] MEDS: Ondansetron 4 MG/2 ML VIAL IVP PRN (12:42)
[2021-09-12] MEDS: Insulin DETEMIR 100 UNIT/ML X5UNITS SUBQ SCH (21:12)
[2021-09-13 02:41] LABS: Hematocrit 32.5 % (37.5-50.1); Mean Corpuscular HGB Conc 33.8 g/dL (31.6-35.5); Mean Corpuscular Hemoglobin 29.8 pg (28.0-33.3); Mean Corpuscular Volume 88.1 fL (83.0-100.0); Mean Platelet Volume 9.7 fL (9.4-12.4); Platelet Count 167 K/mcL (140-400); Red Blood Count 3.69 M/mcL (4.19-5.50); Red Cell Distribution Width 16.7 % (11.5-14.5)
[2021-09-13 02:58] LABS: Calcium 7.2 mg/dL (8.6-10.3)
[2021-09-13 03:18] LABS: Lymphocytes # 1.1 K/mcL (0.6-4.6); Monocytes # 0.4 K/mcL (0.0-1.3); Neutrophils # 5.5 K/mcL (1.6-8.9); Platelet Estimate Normal (Normal); Reactive Lymphocytes Present (Not Present)
[2021-09-13] MEDS: *HR* Heparin 5,000 UNIT/ML VIAL SQ SCH ×3 (05:23→21:31)
[2021-09-13] MEDS: Ondansetron 4 MG/2 ML VIAL IVP PRN (05:23)
[2021-09-13] MEDS ORDERED: 0.9 % Sodium Chloride 1,000 ML IVC SCH (08:15)
[2021-09-13] MEDS: Insulin LISPRO 300 UNITS/3 ML VIAL SUBQ SCH ×4 (09:02→20:08)
[2021-09-13] MEDS: Piperacillin/Tazobactam 3.375 GM in 0.9 % Sodium Chloride Mini Bag 100 ML IVPB SCH ×2 (09:09→20:31)
[2021-09-13] MEDS: Aspirin 81 MG TAB.CHEW PO SCH (09:10)
[2021-09-13] MEDS: DilTIAZem CD (24hr) 120 MG CAP.ER.24H PO SCH (09:10)
[2021-09-13] MEDS: Pantoprazole 40 MG VIAL IVP SCH (09:10)
[2021-09-13] MEDS: Acetaminophen 325 MG TABLET PO PRN (20:08)
[2021-09-13] MEDS ORDERED: Potassium Chloride Elixir 20 MEQ/15 ML UDC PO ONE (20:40)
[2021-09-13 21:54] LABS: Calcium 6.6 mg/dL (8.6-10.3); Magnesium 1.6 mg/dL (1.6-2.6); Potassium 3.1 mEq/L (3.5-5.1)
[2021-09-13] MEDS ORDERED: Calcium Gluconate 1gm/50mL 1 GM/50 ML BAG IVPB ONE (21:55)
[2021-09-14] MEDS: Simethicone 80 MG TAB.CHEW PO PRN ×2 (04:12→08:55)
[2021-09-14] MEDS: *HR* Heparin 5,000 UNIT/ML VIAL SQ SCH ×3 (04:12→22:34)
[2021-09-14 05:47] LABS: Basophils # 0.1 K/mcL (0.0-0.2); Basophils % 0.8 %; Eosinophils # 0.2 K/mcL (0.0-0.6); Eosinophils % 2.7 %; Hematocrit 33.4 % (37.5-50.1); Hemoglobin 11.6 g/dL (12.9-16.9); Immature Granulocytes % 1.4 % (0-4); Lymphocytes # 1.5 K/mcL (0.6-4.6); Lymphocytes % 17.4 %; Mean Corpuscular HGB Conc 34.7 g/dL (31.6-35.5); Mean Corpuscular Hemoglobin 30.4 pg (28.0-33.3); Mean Corpuscular Volume 87.7 fL (83.0-100.0); Mean Platelet Volume 10.3 fL (9.4-12.4); Monocytes # 1.3 K/mcL (0.0-1.3); Monocytes % 15.3 %; Neutrophils # 5.2 K/mcL (1.6-8.9); Platelet Count 214 K/mcL (140-400); Red Blood Count 3.81 M/mcL (4.19-5.50); Red Cell Distribution Width 16.8 % (11.5-14.5); Segmented Neutrophils % 62.4 %; White Blood Count 8.4 K/mcL (4.3-11.1)
[2021-09-14] MEDS: Ondansetron 4 MG/2 ML VIAL IVP PRN (06:01)
[2021-09-14 06:04] LABS: Potassium 3.2 mEq/L (3.5-5.1)
[2021-09-14 06:11] LABS: Platelet Estimate Normal (Normal)
[2021-09-14] MEDS: Insulin LISPRO 300 UNITS/3 ML VIAL SUBQ SCH ×4 (08:39→22:34)
[2021-09-14] MEDS: Aspirin 81 MG TAB.CHEW PO SCH (08:40)
[2021-09-14] MEDS: Pantoprazole 40 MG VIAL IVP SCH (08:40)
[2021-09-14] MEDS: DilTIAZem CD (24hr) 120 MG CAP.ER.24H PO SCH (08:40)
[2021-09-14] MEDS: Piperacillin/Tazobactam 3.375 GM in 0.9 % Sodium Chloride Mini Bag 100 ML IVPB SCH ×2 (08:55→22:33)
[2021-09-14] MEDS ORDERED: 0.9 % Sodium Chloride 1,000 ML IVC SCH (12:15)
[2021-09-14 13:24] LABS: Complement C3 138 mg/dL (87-200)
[2021-09-14 13:25] LABS: Rheumatoid Factor 11 IU/mL (Less than 14)
[2021-09-14 13:50] LABS: Vitamin D 25 Hydroxy 44 ng/mL (30-80)
[2021-09-15 01:58] LABS: Basophils # 0.1 K/mcL (0.0-0.2); Basophils % 0.7 %; Eosinophils # 0.2 K/mcL (0.0-0.6); Eosinophils % 2.2 %; Hematocrit 34.9 % (37.5-50.1); Hemoglobin 12.1 g/dL (12.9-16.9); Immature Granulocytes % 1.5 % (0-4); Lymphocytes % 22.3 %; Mean Corpuscular HGB Conc 34.7 g/dL (31.6-35.5); Mean Corpuscular Hemoglobin 30.1 pg (28.0-33.3); Mean Corpuscular Volume 86.8 fL (83.0-100.0); Mean Platelet Volume 10.3 fL (9.4-12.4); Monocytes # 1.1 K/mcL (0.0-1.3); Monocytes % 12.4 %; Platelet Count 276 K/mcL (140-400); Red Blood Count 4.02 M/mcL (4.19-5.50); Red Cell Distribution Width 16.9 % (11.5-14.5); Segmented Neutrophils % 60.9 %; White Blood Count 9.1 K/mcL (4.3-11.1)
[2021-09-15] MEDS: *HR* HYDROcodone/Acet 5/325 mg TABLET PO PRN (01:59)
[2021-09-15] MEDS: Acetaminophen 325 MG TABLET PO PRN ×2 (01:59→21:13)
[2021-09-15] MEDS: Ondansetron 4 MG/2 ML VIAL IVP PRN (01:59)
[2021-09-15 02:00] LABS: Neutrophils # 5.5 K/mcL (1.6-8.9)
[2021-09-15 02:17] LABS: Calcium 6.7 mg/dL (8.6-10.3); Potassium 3.6 mEq/L (3.5-5.1)
[2021-09-15 03:03] LABS: Platelet Estimate Normal (Normal); Reactive Lymphocytes Present (Not Present)
[2021-09-15] MEDS ORDERED: Sodium Bicarbonate 75 MEQ in 0.45 % Sodium Chloride 1,000 ML IVC SCH (03:45)
[2021-09-15] MEDS: *HR* Heparin 5,000 UNIT/ML VIAL SQ SCH ×3 (06:45→20:10)
[2021-09-15] MEDS: Piperacillin/Tazobactam 3.375 GM in 0.9 % Sodium Chloride Mini Bag 100 ML IVPB SCH ×2 (07:48→20:09)
[2021-09-15] MEDS: DilTIAZem CD (24hr) 120 MG CAP.ER.24H PO SCH (07:49)
[2021-09-15] MEDS: Aspirin 81 MG TAB.CHEW PO SCH (07:49)
[2021-09-15] MEDS: Pantoprazole 40 MG VIAL IVP SCH ×3 (07:51→20:09)
[2021-09-15] MEDS: Insulin LISPRO 300 UNITS/3 ML VIAL SUBQ SCH ×4 (08:25→20:18)
[2021-09-15] MEDS: Sodium Bicarbonate 75 MEQ in 0.45 % Sodium Chloride 1,000 ML IVC SCH ×2 (08:25→17:26)
[2021-09-15] MEDS ORDERED: Hydrocortisone Sodium Succ 100 MG/2 ML VIAL IVP STA (09:07)
[2021-09-15 10:11] LABS: Troponin I 0.03 ng/mL (< 0.04)
[2021-09-15 10:35] LABS: C-Reactive Protein > 300 mg/L (Less than 10); Thyroid Stimulating Hormone 1.595 mcIU/mL (0.340-5.600); Triiodothyronine (T3) Free 2.59 pg/mL (2.50-3.90)
[2021-09-15] MEDS: Albumin 25% 25gram/100mL 25 GM/100 ML IV.SOLN IVC SCH ×2 (12:18→14:01)
[2021-09-15] MEDS ORDERED: tiZANidine 4 MG TABLET PO ONE (21:20)
[2021-09-16] MEDS: Sodium Bicarbonate 75 MEQ in 0.45 % Sodium Chloride 1,000 ML IVC SCH ×2 (04:53→17:07)
[2021-09-16] MEDS: *HR* Heparin 5,000 UNIT/ML VIAL SQ SCH ×3 (04:53→21:15)
[2021-09-16 06:34] LABS: Eosinophils # 0.1 K/mcL (0.0-0.6); Hematocrit 28.3 % (37.5-50.1); Mean Corpuscular HGB Conc 33.9 g/dL (31.6-35.5); Mean Corpuscular Hemoglobin 29.4 pg (28.0-33.3); Mean Corpuscular Volume 86.8 fL (83.0-100.0); Platelet Count 248 K/mcL (140-400); Red Blood Count 3.26 M/mcL (4.19-5.50); Red Cell Distribution Width 16.8 % (11.5-14.5); White Blood Count 7.1 K/mcL (4.3-11.1)
[2021-09-16 07:01] LABS: Calcium 6.1 mg/dL (8.6-10.3); Potassium 3.4 mEq/L (3.5-5.1)
[2021-09-16 07:36] LABS: Hemoglobin 9.6 g/dL (12.9-16.9)
[2021-09-16 07:43] LABS: Lymphocytes # 1.9 K/mcL (0.6-4.6); Monocytes # 0.4 K/mcL (0.0-1.3); Neutrophils # 4.6 K/mcL (1.6-8.9)
[2021-09-16 07:44] LABS: Polychromasia 1+ (Not Present)
[2021-09-16 07:45] LABS: Anisocytosis 1+ (Not Present); Poikilocytosis 1+ (Not Present)
[2021-09-16 07:47] LABS: Microcytosis Present (Not Present)
[2021-09-16 07:48] LABS: Spherocytes 1+ (Not Present)
[2021-09-16] MEDS: Piperacillin/Tazobactam 3.375 GM in 0.9 % Sodium Chloride Mini Bag 100 ML IVPB SCH ×2 (10:08→21:15)
[2021-09-16] MEDS: Aspirin 81 MG TAB.CHEW PO SCH (10:09)
[2021-09-16] MEDS: Pantoprazole 40 MG VIAL IVP SCH ×2 (10:09→21:16)
[2021-09-16] MEDS: Insulin LISPRO 300 UNITS/3 ML VIAL SUBQ SCH ×4 (10:10→21:20)
[2021-09-16] MEDS: Ondansetron 4 MG/2 ML VIAL IVP PRN (21:24)
[2021-09-16] MEDS: *HR* HYDROcodone/Acet 5/325 mg TABLET PO PRN (21:24)
[2021-09-17] MEDS ORDERED: *HR* Metoprolol 5 MG/5 ML VIAL IVP ONE (00:54)
[2021-09-17 03:28] LABS: Basophils # 0.1 K/mcL (0.0-0.2); Basophils % 0.7 %; Eosinophils # 0.1 K/mcL (0.0-0.6); Eosinophils % 1.4 %; Hematocrit 34.7 % (37.5-50.1); Immature Granulocytes % 1.5 % (0-4); Lymphocytes % 23.9 %; Mean Corpuscular HGB Conc 35.7 g/dL (31.6-35.5); Mean Corpuscular Hemoglobin 30.6 pg (28.0-33.3); Mean Corpuscular Volume 85.7 fL (83.0-100.0); Mean Platelet Volume 10.1 fL (9.4-12.4); Monocytes # 0.8 K/mcL (0.0-1.3); Monocytes % 10.8 %; Neutrophils # 4.5 K/mcL (1.6-8.9); Platelet Count 427 K/mcL (140-400); Red Blood Count 4.05 M/mcL (4.19-5.50); Red Cell Distribution Width 17.1 % (11.5-14.5); Segmented Neutrophils % 61.7 %; White Blood Count 7.3 K/mcL (4.3-11.1)
[2021-09-17 03:35] LABS: Hemoglobin 12.4 g/dL (12.9-16.9); Lymphocytes # 1.7 K/mcL (0.6-4.6)
[2021-09-17 04:08] LABS: Calcium 5.9 mg/dL (8.6-10.3); Potassium 2.8 mEq/L (3.5-5.1); Uric Acid 20.1 mg/dL (2.3-7.6)
[2021-09-17] MEDS: Sodium Bicarbonate 75 MEQ in 0.45 % Sodium Chloride 1,000 ML IVC SCH ×2 (04:18→12:52)
[2021-09-17] MEDS: Calcium Gluconate 1gm/50mL 1 GM/50 ML BAG IVPB SCH ×3 (04:20→18:35)
[2021-09-17] MEDS: *HR* Heparin 5,000 UNIT/ML VIAL SQ SCH ×2 (05:08→16:18)
[2021-09-17] MEDS: Acetaminophen 325 MG TABLET PO PRN (05:08)
[2021-09-17] MEDS: Ondansetron 4 MG/2 ML VIAL IVP PRN (05:09)
[2021-09-17] MEDS ORDERED: Albumin 25% 25gram/100mL 25 GM/100 ML IV.SOLN IVPB ONE (06:25)
[2021-09-17] MEDS ORDERED: 0.9 % Sodium Chloride 500 ML IVC ONE ×2 (08:09→14:19)
[2021-09-17] MEDS ORDERED: 0.9 % Sodium Chloride 500 ML ONE (08:15)
[2021-09-17] MEDS: Aspirin 81 MG TAB.CHEW PO SCH (08:19)
[2021-09-17] MEDS: Pantoprazole 40 MG VIAL IVP SCH ×2 (08:45→22:04)
[2021-09-17] MEDS: Insulin LISPRO 300 UNITS/3 ML VIAL SUBQ SCH ×4 (08:46→22:08)
[2021-09-17] MEDS: Piperacillin/Tazobactam 3.375 GM in 0.9 % Sodium Chloride Mini Bag 100 ML IVPB SCH ×2 (11:33→22:08)
[2021-09-17] MEDS ORDERED: *HR* Heparin 5,000 UNIT/ML VIAL ONE (14:59)
[2021-09-17 16:19] LABS: VBG Ionized Calcium 0.66 mmol/L (1.15-1.35)
[2021-09-17] MEDS: *HR* HYDROcodone/Acet 5/325 mg TABLET PO PRN (16:26)
[2021-09-17 16:33] LABS: Calcium 6.4 mg/dL (8.6-10.3)
[2021-09-17 16:51] LABS: ABG Base Excess -12 mEq/L (-2 to 3); ABG HCO3 12 mEq/L (21-27); ABG Oxygen Saturation 96 % (95-98); ABG PCO2 21 mmHg (35-45); ABG PH 7.36 pH Units (7.32-7.45); ABG PO2 80 mmHg (85-104); ABG TCO2 13 mEq/L (20-26)
[2021-09-17] MEDS ORDERED: 0.9 % Sodium Chloride 1,000 ML ONE ×3 (19:52→21:42)
[2021-09-17 21:14] LABS: ABG Base Excess -14 mEq/L (-2 to 3); ABG HCO3 12 mEq/L (21-27); ABG Oxygen Saturation 99 % (95-98); ABG PCO2 32 mmHg (35-45); ABG PO2 139 mmHg (85-104); ABG TCO2 13 mEq/L (20-26); Blood Gas Modality CPAP/PS; Blood Gas Pressure Support 10 cm H2O
[2021-09-17 21:15] LABS: Hematocrit 33.7 % (37.5-50.1); Hemoglobin 11.1 g/dL (12.9-16.9); Mean Corpuscular HGB Conc 32.9 g/dL (31.6-35.5); Mean Corpuscular Hemoglobin 29.8 pg (28.0-33.3); Mean Corpuscular Volume 90.3 fL (83.0-100.0); Mean Platelet Volume 9.7 fL (9.4-12.4); Monocytes # 1.8 K/mcL (0.0-1.3); Nucleated Red Blood Cells 0.7 /100 WBC (0); Platelet Count 482 K/mcL (140-400); Red Blood Count 3.73 M/mcL (4.19-5.50); Red Cell Distribution Width 17.6 % (11.5-14.5)
[2021-09-17 21:19] LABS: White Blood Count 17.6 K/mcL (4.3-11.1)
[2021-09-17 21:31] LABS: INR 1.6; Prothrombin Time 17.5 Seconds (9.4-12.1)
[2021-09-17 21:41] LABS: Lymphocytes # 3.9 K/mcL (0.6-4.6); Neutrophils # 10.6 K/mcL (1.6-8.9)
[2021-09-17] MEDS ORDERED: 0.9 % Sodium Chloride 1,000 ML IVC ONE ×2 (21:47→23:36)
[2021-09-17] MEDS: Phenylephrine 50 MG in 0.9 % Sodium Chloride 250 ML IVC SCH (21:48)
[2021-09-17 21:49] LABS: Platelet Estimate Normal (Normal)
[2021-09-17 21:50] LABS: Polychromasia 1+ (Not Present)
[2021-09-17] MEDS ORDERED: Artificial Tears SOLN 15 ML BOTTLE BOTH EYES PRN (21:50)
[2021-09-17] MEDS ORDERED: Calcium Chloride 2,000 MG in 0.9 % Sodium Chloride 100 ML IVPB ONE (22:00)
[2021-09-17 22:04] LABS: Albumin 3.8 g/dL (3.5-5.7); Albumin/Globulin Ratio 1.5 (1.1-2.2); Bilirubin,Total 0.5 mg/dL (0.3-1.0); Globulin 2.6 g/dL (2.4-3.5); Total Protein 6.4 g/dL (6.4-8.9); Troponin I 0.24 ng/mL (< 0.04)
[2021-09-17] MEDS ORDERED: *HR* FentaNYL (PF) 100 MCG/2 ML VIAL IVP ONE (22:06)
[2021-09-17] MEDS ORDERED: 0.9 % Sodium Chloride 250 ML ONE (22:29)
[2021-09-17] MEDS ORDERED: *HR* Norepinephrine 4 MG/4 ML VIAL IVC ONE (22:29)
[2021-09-17] MEDS: Sodium Bicarbonate 150 MEQ in D5% in Water 1,000 ML IVC SCH (23:51)
[2021-09-18] MEDS: FentaNYL (PF) 1,000 MCG/100 ML IV.SOLN IVC SCH ×5 (00:02→22:57)
[2021-09-18] MEDS: Artificial Tears SOLN 15 ML BOTTLE BOTH EYES SCH ×6 (00:11→20:52)
[2021-09-18] MEDS: Norepinephrine 4 MG/254 ML IV.SOLN IVC SCH ×2 (01:17→07:50)
[2021-09-18 01:30] LABS: ANCA IFA Titer <1:20 (<1:20)
[2021-09-18] MEDS: Vasopressin 40 UNIT in D5% in Water 100 ML IVC SCH ×2 (01:37→13:55)
[2021-09-18] MEDS: Acetaminophen 325 MG TABLET PO PRN (02:07)
[2021-09-18] MEDS ORDERED: 0.9 % Sodium Chloride 1,000 ML IVC ONE (02:07)
[2021-09-18 03:50] LABS: Hematocrit 29.1 % (37.5-50.1); Mean Corpuscular HGB Conc 34.4 g/dL (31.6-35.5); Mean Corpuscular Hemoglobin 30.3 pg (28.0-33.3); Mean Corpuscular Volume 88.2 fL (83.0-100.0); Mean Platelet Volume 9.8 fL (9.4-12.4); Nucleated Red Blood Cells 0.3 /100 WBC (0); Platelet Count 403 K/mcL (140-400); Red Cell Distribution Width 17.4 % (11.5-14.5); White Blood Count 11.9 K/mcL (4.3-11.1)
[2021-09-18 04:04] LABS: ABG Base Excess -12 mEq/L (-2 to 3); ABG HCO3 12 mEq/L (21-27); ABG Oxygen Saturation 100 % (95-98); ABG PCO2 24 mmHg (35-45); ABG PH 7.32 pH Units (7.32-7.45); ABG PO2 479 mmHg (85-104); ABG TCO2 13 mEq/L (20-26); Blood Gas VT 460 cc
[2021-09-18 04:23] LABS: Alanine Aminotransferase 189 Units/L (7-52); Albumin 3.1 g/dL (3.5-5.7); Albumin/Globulin Ratio 1.5 (1.1-2.2); Alkaline Phosphatase 48 Units/L (34-104); Aspartate Amino Transferase 327 Units/L (13-39); BUN/Creatinine Ratio 5 (6-26); Bilirubin,Direct 0.3 mg/dL (0.0-0.2); Bilirubin,Indirect 0.4 mg/dL (0.0-1.0); Bilirubin,Total 0.7 mg/dL (0.3-1.0); Blood Urea Nitrogen 58 mg/dL (8-23); C-Reactive Protein > 300 mg/L (Less than 10); Calcium 5.9 mg/dL (8.6-10.3); Carbon Dioxide 10 mEq/L (23-29); Chloride 93 mEq/L (98-107); Globulin 2.1 g/dL (2.4-3.5); Glucose 217 mg/dL (70-105); Magnesium 1.7 mg/dL (1.6-2.6); Osmolality,Calculated 289 (280-300); Phosphorous 8.7 mg/dL (2.7-4.5); Potassium 3.8 mEq/L (3.5-5.1); Sodium 128 mEq/L (136-145); Total Protein 5.2 g/dL (6.4-8.9); eGFR For African Americans 5 (> 60); eGFR For Non-African Americans 4 (> 60)
[2021-09-18 04:42] LABS: Eosinophils # 0.2 K/mcL (0.0-0.6); Lymphocytes # 2.9 K/mcL (0.6-4.6); Monocytes # 0.7 K/mcL (0.0-1.3); Neutrophils # 7.6 K/mcL (1.6-8.9)
[2021-09-18 04:43] LABS: Platelet Estimate Normal (Normal); Polychromasia 1+ (Not Present)
[2021-09-18 05:14] LABS: Hepatitis B Surface Antibody < 3.10 mIU/mL
[2021-09-18 05:25] LABS: Hepatitis B Surface Antigen Nonreactive (Nonreactive)
[2021-09-18 05:53] LABS: Hepatitis B Core IgM Nonreactive (Nonreactive)
[2021-09-18 06:27] LABS: VBG Ionized Calcium 0.99 mmol/L (1.15-1.35)
[2021-09-18 07:55] LABS: ABG Base Excess -11 mEq/L (-2 to 3); ABG HCO3 13 mEq/L (21-27); ABG Oxygen Saturation 100 % (95-98); ABG PCO2 24 mmHg (35-45); ABG PH 7.35 pH Units (7.32-7.45); ABG PO2 214 mmHg (85-104); ABG TCO2 14 mEq/L (20-26); Blood Gas Modality ASSIST CONTROL; Blood Gas VT 491 cc
[2021-09-18] MEDS: Sodium Bicarbonate 150 MEQ in D5% in Water 1,000 ML IVC SCH ×3 (07:58→23:47)
[2021-09-18 08:34] LABS: Alpha 2 Globulin (PEP) 0.95 g/dL (0.48-1.05)
[2021-09-18] MEDS: Piperacillin/Tazobactam 3.375 GM in 0.9 % Sodium Chloride Mini Bag 100 ML IVPB SCH ×2 (09:29→21:46)
[2021-09-18] MEDS: Pantoprazole 40 MG VIAL IVP SCH ×2 (09:31→21:46)
[2021-09-18] MEDS: Aspirin 81 MG TAB.CHEW PO SCH (09:32)
[2021-09-18] MEDS: Chlorhexidine Rinse 15 ML MOUTHWASH MM SCH ×2 (09:32→21:47)
[2021-09-18 11:28] LABS: IFE Reflexed IFE Done; Immunoglobulin A 154 mg/dL (68-408); Immunoglobulin G 466 mg/dL (768-1632); Immunoglobulin M 35 mg/dL (35-263)
[2021-09-18 11:29] LABS: ANCA IFA Pattern NONE DETECTED (None Detected); Serine Protease-3 Antibody 2 AU/mL (0-19)
[2021-09-18] MEDS ORDERED: Calcium Gluconate 1gm/50mL 1 GM/50 ML BAG IVPB ONE (11:40)
[2021-09-18 12:50] LABS: Bacteria,Urine Few per hpf (None-Few); Bilirubin,Urine Negative (Negative); Blood,Urine Large (Negative); Clarity,Urine Ex.Turbid (Clear); Color,Urine Dark-Yellow (Yellow); Glucose,Urine (UA) 70 mg/dL (Normal); Ketones,Urine Trace mg/dL (Negative); Leukocyte Esterase,Urine Large (Negative); Mucus,Urine Few per lpf (None-Few); Nitrite,Urine Negative (Negative); Protein,Urine >=300 mg/dL (Neg-Trace); RBC,Urine 15-30 per hpf (0-3); Renal Epithelial Cells,Urine Few per hpf (None-Few); Specific Gravity,Urine 1.025 (1.010-1.025); Squamous Epithelial Cell,Urine Few per hpf (None-Few); Transitional Epi Cells,Urine Few per hpf (None-Few); Urobilinogen,Urine Normal (Normal); WBC,Urine TNTC per hpf (0-3)
[2021-09-18] MEDS: Norepinephrine 8 MG/258 ML IV.SOLN IVC SCH ×3 (13:27→23:45)
[2021-09-18] MEDS: Insulin LISPRO 300 UNITS/3 ML VIAL SUBQ SCH ×2 (13:53→18:40)
[2021-09-18 13:59] LABS: Adenovirus F 40/41 PCR Not detected (Not detect); Astrovirus PCR Not detected (Not detect); C.difficile Toxin A/B Gene PCR Not detected (Not detect); Campylobacter by PCR Not detected (Not detect); Cryptosporidium by PCR Not detected (Not detect); Cyclospora cayetanensis PCR Not detected (Not detect); E. coli O157 by PCR Not detected (Not detect); Entamoeba histolytica PCR Not detected (Not detect); Enteroaggregative E.coli(EAEC) DETECTED (Not detect); Enteropathogenic E.coli(EPEC) Not detected (Not detect); Enterotoxigenic E.coli (ETEC) Not detected (Not detect); Giardia lamblia PCR Not detected (Not detect); Norovirus GI/GII PCR Not detected (Not detect); Plesiomonas shigelloides PCR Not detected (Not detect); Rotavirus A PCR Not detected (Not detect); Salmonella PCR Not detected (Not detect); Sapovirus PCR Not detected (Not detect); Shig/EnteroinvasiveE coli EIEC Not detected (Not detect); Shigalike tox-prod E coli STEC Not detected (Not detect); Vibrio PCR Not detected (Not detect); Vibrio cholerae PCR Not detected (Not detect); Yersinia enterocolitica PCR Not detected (Not detect)
[2021-09-18 16:54] LABS: ABG Ionized Calcium 0.82 mmol/L (1.15-1.35)
[2021-09-18 17:03] LABS: Albumin/Globulin Ratio 1.3 (1.1-2.2); Bilirubin,Total 0.8 mg/dL (0.3-1.0); Calcium 6.9 mg/dL (8.6-10.3); Globulin 2.4 g/dL (2.4-3.5); Magnesium 2.2 mg/dL (1.6-2.6); Total Protein 5.4 g/dL (6.4-8.9)
[2021-09-18] MEDS: Calcium Gluconate 1gm/50mL 1 GM/50 ML BAG IVPB PRN (17:42)
[2021-09-18] MEDS: Potassium Chloride 40 MEQ/200 ML BAG IVPB PRN (17:43)
[2021-09-18] MEDS: 0.9 % Sodium Chloride 1,000 ML IVC SCH (20:49)
[2021-09-18] MEDS: Azithromycin 500 MG in 0.9 % Sodium Chloride 250 ML IVPB SCH (21:45)
[2021-09-18] MEDS: *HR* Heparin 5,000 UNIT/ML VIAL SQ SCH (21:47)
[2021-09-18] MEDS: Phenylephrine 50 MG in 0.9 % Sodium Chloride 250 ML IVC SCH (21:48)
[2021-09-19] MEDS: Acetaminophen 325 MG TABLET PO PRN ×2 (00:27→23:32)
[2021-09-19] MEDS: Artificial Tears SOLN 15 ML BOTTLE BOTH EYES SCH ×7 (00:28→23:32)
[2021-09-19] MEDS: Insulin LISPRO 300 UNITS/3 ML VIAL SUBQ SCH ×6 (00:28→23:33)
[2021-09-19] MEDS ORDERED: 0.9 % Sodium Chloride 1,000 ML IVC ONE (01:19)
[2021-09-19] MEDS: Norepinephrine 8 MG/258 ML IV.SOLN IVC SCH ×6 (01:50→20:23)
[2021-09-19 03:22] LABS: Basophils % 0.4 %; Eosinophils # 0.1 K/mcL (0.0-0.6); Eosinophils % 1.5 %; Hemoglobin 9.4 g/dL (12.9-16.9); Immature Granulocytes % 2.6 % (0-4); Lymphocytes # 1.7 K/mcL (0.6-4.6); Lymphocytes % 21.3 %; Mean Corpuscular HGB Conc 34.8 g/dL (31.6-35.5); Mean Corpuscular Hemoglobin 30.1 pg (28.0-33.3); Mean Corpuscular Volume 86.5 fL (83.0-100.0); Mean Platelet Volume 9.7 fL (9.4-12.4); Monocytes # 0.9 K/mcL (0.0-1.3); Monocytes % 10.9 %; Neutrophils # 5.1 K/mcL (1.6-8.9); Nucleated Red Blood Cells 0.4 /100 WBC (0); Platelet Count 402 K/mcL (140-400); Red Blood Count 3.12 M/mcL (4.19-5.50); Red Cell Distribution Width 17.5 % (11.5-14.5); Segmented Neutrophils % 63.3 %
[2021-09-19 03:40] LABS: Albumin 2.7 g/dL (3.5-5.7); Albumin/Globulin Ratio 1.2 (1.1-2.2); Bilirubin,Direct 0.3 mg/dL (0.0-0.2); Bilirubin,Indirect 0.4 mg/dL (0.0-1.0); Bilirubin,Total 0.7 mg/dL (0.3-1.0); Calcium 6.1 mg/dL (8.6-10.3); Globulin 2.2 g/dL (2.4-3.5); Magnesium 1.8 mg/dL (1.6-2.6); Phosphorous 6.6 mg/dL (2.7-4.5); Potassium 3.3 mEq/L (3.5-5.1); Total Protein 4.9 g/dL (6.4-8.9)
[2021-09-19 03:40] LABS: VBG Ionized Calcium 0.75 mmol/L (1.15-1.35)
[2021-09-19] MEDS ORDERED: Acetaminophen IV 1,000 MG/100 ML BAG IVPB ONE (03:56)
[2021-09-19 04:25] LABS: ABG Base Excess -2 mEq/L (-2 to 3); ABG HCO3 20 mEq/L (21-27); ABG Oxygen Saturation 100 % (95-98); ABG PCO2 26 mmHg (35-45); ABG PH 7.51 pH Units (7.32-7.45); ABG PO2 167 mmHg (85-104); ABG TCO2 21 mEq/L (20-26); Blood Gas Modality ASSIST CONTROL; Blood Gas VT 460 cc
[2021-09-19] MEDS: Potassium Chloride 40 MEQ/200 ML BAG IVPB PRN (04:32)
[2021-09-19] MEDS: Calcium Gluconate 1gm/50mL 1 GM/50 ML BAG IVPB PRN ×2 (04:33→05:37)
[2021-09-19] MEDS: FentaNYL (PF) 1,000 MCG/100 ML IV.SOLN IVC SCH ×4 (05:10→23:32)
[2021-09-19] MEDS: *HR* Heparin 5,000 UNIT/ML VIAL SQ SCH ×3 (06:33→21:03)
[2021-09-19] MEDS: Sodium Bicarbonate 150 MEQ in D5% in Water 1,000 ML IVC SCH ×2 (08:33→08:46)
[2021-09-19] MEDS: Pantoprazole 40 MG VIAL IVP SCH ×2 (08:33→21:03)
[2021-09-19] MEDS: Aspirin 81 MG TAB.CHEW PO SCH (08:34)
[2021-09-19] MEDS: Chlorhexidine Rinse 15 ML MOUTHWASH MM SCH ×2 (08:34→21:02)
[2021-09-19] MEDS: Vasopressin 40 UNIT in D5% in Water 100 ML IVC SCH (08:35)
[2021-09-19] MEDS: Piperacillin/Tazobactam 3.375 GM in 0.9 % Sodium Chloride Mini Bag 100 ML IVPB SCH (08:35)
[2021-09-19] MEDS: 0.9 % Sodium Chloride 1,000 ML IVC SCH ×3 (08:38→19:00)
[2021-09-19] MEDS ORDERED: D10% in Water 500 ML IVC PRN (11:44)
[2021-09-19] MEDS: Norepinephrine 4 MG/254 ML IV.SOLN IVC SCH ×2 (15:07→18:13)
[2021-09-19] MEDS: Calcium Gluconate 1gm/50mL 1 GM/50 ML BAG IVPB SCH (15:07)
[2021-09-19] MEDS ORDERED: Clinimix 5%-20% SOLUTION 2,000 ML with MVI, adult with vitamin K 10 ML, Sodium Acetat... IVC SCH (17:00)
[2021-09-19] MEDS: Phenylephrine 50 MG in 0.9 % Sodium Chloride 250 ML IVC SCH (19:28)
[2021-09-19] MEDS: Azithromycin 500 MG in 0.9 % Sodium Chloride 250 ML IVPB SCH (21:02)
[2021-09-19] MEDS ORDERED: Meropenem 500 MG in 0.9 % Sodium Chloride Mini Bag 100 ML IVPB SCH (22:00)
[2021-09-20] MEDS: Norepinephrine 8 MG/258 ML IV.SOLN IVC SCH ×6 (00:50→20:14)
[2021-09-20] MEDS: Sodium Bicarbonate 150 MEQ in D5% in Water 1,000 ML IVC SCH (03:47)
[2021-09-20] MEDS: Artificial Tears SOLN 15 ML BOTTLE BOTH EYES SCH ×6 (03:48→23:34)
[2021-09-20] MEDS: Insulin LISPRO 300 UNITS/3 ML VIAL SUBQ SCH ×6 (03:49→23:44)
[2021-09-20] MEDS: Phenylephrine 50 MG in 0.9 % Sodium Chloride 250 ML IVC SCH ×4 (03:56→21:03)
[2021-09-20 04:29] LABS: Albumin 2.6 g/dL (3.5-5.7); Albumin/Globulin Ratio 1.2 (1.1-2.2); Bilirubin,Direct 0.3 mg/dL (0.0-0.2); Bilirubin,Indirect 0.4 mg/dL (0.0-1.0); Bilirubin,Total 0.7 mg/dL (0.3-1.0); Calcium 6.5 mg/dL (8.6-10.3); Globulin 2.2 g/dL (2.4-3.5); Magnesium 2.6 mg/dL (1.6-2.6); Phosphorous 6.8 mg/dL (2.7-4.5); Potassium 3.7 mEq/L (3.5-5.1); Total Protein 4.8 g/dL (6.4-8.9)
[2021-09-20] MEDS: FentaNYL (PF) 1,000 MCG/100 ML IV.SOLN IVC SCH ×4 (04:32→20:35)
[2021-09-20 04:39] LABS: ABG Base Excess -4 mEq/L (-2 to 3); ABG HCO3 20 mEq/L (21-27); ABG Oxygen Saturation 98 % (95-98); ABG PCO2 31 mmHg (35-45); ABG PH 7.42 pH Units (7.32-7.45); ABG PO2 97 mmHg (85-104); ABG TCO2 21 mEq/L (20-26); Blood Gas Modality ASSIST CONTROL; Blood Gas VT 460 cc
[2021-09-20 04:40] LABS: VBG Ionized Calcium 0.83 mmol/L (1.15-1.35)
[2021-09-20] MEDS: Calcium Gluconate 1gm/50mL 1 GM/50 ML BAG IVPB PRN ×2 (04:59→05:59)
[2021-09-20] MEDS: Potassium Chloride 40 MEQ/200 ML BAG IVPB PRN (04:59)
[2021-09-20] MEDS: *HR* Heparin 5,000 UNIT/ML VIAL SQ SCH ×3 (05:00→21:38)
[2021-09-20] MEDS: 0.9 % Sodium Chloride 1,000 ML IVC SCH ×2 (05:01→15:01)
[2021-09-20 05:57] LABS: Hemoglobin 9.3 g/dL (12.9-16.9); Mean Corpuscular HGB Conc 33.2 g/dL (31.6-35.5); Mean Corpuscular Hemoglobin 29.5 pg (28.0-33.3); Mean Corpuscular Volume 88.9 fL (83.0-100.0); Mean Platelet Volume 9.8 fL (9.4-12.4); Monocytes # 1.2 K/mcL (0.0-1.3); Platelet Count 467 K/mcL (140-400); Red Blood Count 3.15 M/mcL (4.19-5.50); Red Cell Distribution Width 17.9 % (11.5-14.5); White Blood Count 9.2 K/mcL (4.3-11.1)
[2021-09-20] MEDS: Norepinephrine 4 MG/254 ML IV.SOLN IVC SCH (07:54)
[2021-09-20] MEDS: Pantoprazole 40 MG VIAL IVP SCH ×2 (08:15→19:36)
[2021-09-20] MEDS: Chlorhexidine Rinse 15 ML MOUTHWASH MM SCH ×2 (08:16→19:35)
[2021-09-20] MEDS: Aspirin 81 MG TAB.CHEW PO SCH (08:16)
[2021-09-20 09:17] LABS: Eosinophils # 0.4 K/mcL (0.0-0.6); Lymphocytes # 2.3 K/mcL (0.6-4.6)
[2021-09-20 09:18] LABS: Anisocytosis 1+ (Not Present); Platelet Estimate Increased (Normal); Toxic Granulation Present (Not Present)
[2021-09-20] MEDS: Lactobacillus 1 EACH CAP.SPRINK GTUBE SCH ×2 (09:39→19:36)
[2021-09-20] MEDS: Albumin Human 5% 12.5 GM/250 ML IV.SOLN IV SCH ×2 (12:39→19:35)
[2021-09-20 14:40] LABS: Protein/Creatinine Ratio,Urine 1.94 mg/mg (0.00-0.20); Sodium, Urine 56.7 mEq/L
[2021-09-20] MEDS ORDERED: Clinimix 5%-20% SOLUTION 2,000 ML with MVI, adult with vitamin K 10 ML, Sodium Acetat... IVC SCH (17:00)
[2021-09-20] MEDS: MetroNIDAZOLE 500 MG/100 ML 500 MG/100 ML BAG IVPB SCH ×2 (18:17→23:34)
[2021-09-20 20:50] LABS: Calcium 6.2 mg/dL (8.6-10.3); Magnesium 2.2 mg/dL (1.6-2.6); Phosphorous 6.2 mg/dL (2.7-4.5); Potassium 4.1 mEq/L (3.5-5.1)
[2021-09-21] MEDS: Sodium Bicarbonate 150 MEQ in D5% in Water 1,000 ML IVC SCH ×2 (00:56→18:15)
[2021-09-21] MEDS: Norepinephrine 8 MG/258 ML IV.SOLN IVC SCH ×5 (01:00→20:55)
[2021-09-21] MEDS: FentaNYL (PF) 1,000 MCG/100 ML IV.SOLN IVC SCH ×5 (01:45→22:30)
[2021-09-21] MEDS: Phenylephrine 50 MG in 0.9 % Sodium Chloride 250 ML IVC SCH ×4 (03:20→20:00)
[2021-09-21] MEDS: Artificial Tears SOLN 15 ML BOTTLE BOTH EYES SCH ×5 (03:31→20:26)
[2021-09-21] MEDS: Albumin Human 5% 12.5 GM/250 ML IV.SOLN IV SCH ×3 (03:31→20:29)
[2021-09-21] MEDS: 0.9 % Sodium Chloride 1,000 ML IVC SCH ×2 (03:55→14:05)
[2021-09-21] MEDS: Insulin LISPRO 300 UNITS/3 ML VIAL SUBQ SCH ×5 (04:19→20:26)
[2021-09-21 04:35] LABS: ABG Base Excess -5 mEq/L (-2 to 3); ABG HCO3 20 mEq/L (21-27); ABG Oxygen Saturation 93 % (95-98); ABG PCO2 32 mmHg (35-45); ABG PH 7.39 pH Units (7.32-7.45); ABG PO2 68 mmHg (85-104); ABG TCO2 21 mEq/L (20-26); Blood Gas Modality ASSIST CONTROL; Blood Gas VT 490 cc
[2021-09-21 04:37] LABS: VBG Ionized Calcium 0.73 mmol/L (1.15-1.35)
[2021-09-21 04:51] LABS: Albumin 2.5 g/dL (3.5-5.7); Albumin/Globulin Ratio 1.3 (1.1-2.2); Bilirubin,Direct 0.4 mg/dL (0.0-0.2); Bilirubin,Indirect 0.3 mg/dL (0.0-1.0); Bilirubin,Total 0.7 mg/dL (0.3-1.0); Calcium 5.7 mg/dL (8.6-10.3); Magnesium 2.1 mg/dL (1.6-2.6); Phosphorous 5.6 mg/dL (2.7-4.5); Total Protein 4.5 g/dL (6.4-8.9)
[2021-09-21 04:52] LABS: Hematocrit 24.3 % (37.5-50.1); Hemoglobin 8.2 g/dL (12.9-16.9); Mean Corpuscular HGB Conc 33.7 g/dL (31.6-35.5); Mean Corpuscular Hemoglobin 30.3 pg (28.0-33.3); Mean Corpuscular Volume 89.7 fL (83.0-100.0); Mean Platelet Volume 9.6 fL (9.4-12.4); Nucleated Red Blood Cells 0.2 /100 WBC (0); Platelet Count 431 K/mcL (140-400); Red Blood Count 2.71 M/mcL (4.19-5.50); Red Cell Distribution Width 18.3 % (11.5-14.5); White Blood Count 8.4 K/mcL (4.3-11.1)
[2021-09-21] MEDS ORDERED: Calcium Chloride 2,000 MG in 0.9 % Sodium Chloride 100 ML IVPB ONE (05:15)
[2021-09-21] MEDS: *HR* Heparin 5,000 UNIT/ML VIAL SQ SCH ×3 (05:53→20:30)
[2021-09-21] MEDS: Pantoprazole 40 MG VIAL IVP SCH ×2 (08:07→20:29)
[2021-09-21] MEDS: Chlorhexidine Rinse 15 ML MOUTHWASH MM SCH ×2 (08:07→20:29)
[2021-09-21] MEDS: Aspirin 81 MG TAB.CHEW PO SCH (08:07)
[2021-09-21] MEDS: Lactobacillus 1 EACH CAP.SPRINK GTUBE SCH ×2 (08:07→20:29)
[2021-09-21] MEDS: MetroNIDAZOLE 500 MG/100 ML 500 MG/100 ML BAG IVPB SCH ×2 (08:08→15:58)
[2021-09-21 08:13] LABS: Basophils # 0.1 K/mcL (0.0-0.2); Lymphocytes # 2.1 K/mcL (0.6-4.6); Monocytes # 1.4 K/mcL (0.0-1.3); Neutrophils # 4.8 K/mcL (1.6-8.9)
[2021-09-21 08:14] LABS: Anisocytosis 1+ (Not Present); Toxic Granulation Present (Not Present)
[2021-09-21] MEDS ORDERED: *HR* Heparin 5,000 UNIT/ML VIAL IVP PRN (10:46)
[2021-09-21] MEDS ORDERED: SODIUM CHLORIDE 0.9% IVPB ONE (12:00)
[2021-09-21] MEDS ORDERED: CALCIUM GLUCONATE IVPB ONE (12:00)
[2021-09-21 12:14] LABS: VBG Ionized Calcium 0.85 mmol/L (1.15-1.35)
[2021-09-21 12:22] LABS: INR 1.4; Prothrombin Time 15.9 Seconds (9.4-12.1)
[2021-09-21] MEDS: Calcium Chloride 4,000 MG in 0.9 % Sodium Chloride 1,000 ML CRRT SCH (12:47)
[2021-09-21] MEDS: PrismaSATE BGK 4/2.5 5,000 ML CRRT SCH ×6 (12:49→23:40)
[2021-09-21] MEDS: SODIUM CITRATE 500 ML CRRT SCH ×2 (12:50→21:40)
[2021-09-21 15:54] LABS: VBG Ionized Calcium 0.86 mmol/L (1.15-1.35)
[2021-09-21] MEDS: Calcium Gluconate 1gm/50mL 1 GM/50 ML BAG IVPB PRN ×3 (16:10→23:25)
[2021-09-21 16:13] LABS: Magnesium 2.1 mg/dL (1.6-2.6); Potassium 3.8 mEq/L (3.5-5.1)
[2021-09-21] MEDS ORDERED: Clinimix 5%-20% SOLUTION 2,000 ML with MVI, adult with vitamin K 10 ML, Sodium Acetat... IVC SCH (17:00)
[2021-09-21 18:02] LABS: ABG Ionized Calcium 0.92 mmol/L (1.15-1.35)
[2021-09-21 21:12] LABS: VBG Ionized Calcium 0.91 mmol/L (1.15-1.35)
[2021-09-21 23:04] LABS: VBG Ionized Calcium 0.99 mmol/L (1.15-1.35)
[2021-09-21] MEDS: 0.9 % Sodium Chloride 1,000 ML PRIME SCH (23:40)
[2021-09-22] MEDS: 0.9 % Sodium Chloride 1,000 ML PRIME SCH ×4 (00:05→21:10)
[2021-09-22] MEDS: Insulin LISPRO 300 UNITS/3 ML VIAL SUBQ SCH ×7 (00:08→23:58)
[2021-09-22] MEDS: MetroNIDAZOLE 500 MG/100 ML 500 MG/100 ML BAG IVPB SCH ×3 (00:08→16:21)
[2021-09-22] MEDS: Artificial Tears SOLN 15 ML BOTTLE BOTH EYES SCH ×7 (00:08→23:58)
[2021-09-22] MEDS: 0.9 % Sodium Chloride 1,000 ML IVC SCH ×3 (00:47→23:51)
[2021-09-22] MEDS: Phenylephrine 50 MG in 0.9 % Sodium Chloride 250 ML IVC SCH ×4 (01:50→19:31)
[2021-09-22 01:56] LABS: VBG Ionized Calcium 1.07 mmol/L (1.15-1.35)
[2021-09-22] MEDS: Norepinephrine 8 MG/258 ML IV.SOLN IVC SCH ×6 (02:20→23:52)
[2021-09-22] MEDS: SODIUM CITRATE 500 ML CRRT SCH ×4 (02:44→21:25)
[2021-09-22] MEDS: Albumin Human 5% 12.5 GM/250 ML IV.SOLN IV SCH ×3 (03:35→20:04)
[2021-09-22 04:26] LABS: VBG Ionized Calcium 1.09 mmol/L (1.15-1.35)
[2021-09-22] MEDS: Calcium Chloride 4,000 MG in 0.9 % Sodium Chloride 1,000 ML CRRT SCH ×2 (04:32→19:00)
[2021-09-22 05:09] LABS: ABG Base Excess -1 mEq/L (-2 to 3); ABG HCO3 24 mEq/L (21-27); ABG Oxygen Saturation 97 % (95-98); ABG PCO2 40 mmHg (35-45); ABG PH 7.39 pH Units (7.32-7.45); ABG PO2 86 mmHg (85-104); ABG TCO2 25 mEq/L (20-26); Blood Gas VT 490 cc
[2021-09-22 05:16] LABS: Albumin 2.5 g/dL (3.5-5.7); Albumin/Globulin Ratio 1.5 (1.1-2.2); Bilirubin,Total 0.9 mg/dL (0.3-1.0); Calcium 7.6 mg/dL (8.6-10.3); Globulin 1.7 g/dL (2.4-3.5); Phosphorous 3.3 mg/dL (2.7-4.5); Potassium 3.8 mEq/L (3.5-5.1); Total Protein 4.2 g/dL (6.4-8.9)
[2021-09-22] MEDS: PrismaSATE BGK 4/2.5 5,000 ML CRRT SCH ×8 (05:27→21:25)
[2021-09-22] MEDS: FentaNYL (PF) 1,000 MCG/100 ML IV.SOLN IVC SCH ×4 (05:29→21:20)
[2021-09-22] MEDS: *HR* Heparin 5,000 UNIT/ML VIAL SQ SCH ×3 (05:53→21:55)
[2021-09-22 05:54] LABS: Hematocrit 28.9 % (37.5-50.1); Hemoglobin 9.6 g/dL (12.9-16.9); Immature Granulocytes % 2.9 % (0-4); Lymphocytes # 1.2 K/mcL (0.6-4.6); Lymphocytes % 23.3 %; Mean Corpuscular HGB Conc 33.2 g/dL (31.6-35.5); Mean Corpuscular Hemoglobin 30.5 pg (28.0-33.3); Mean Corpuscular Volume 91.7 fL (83.0-100.0); Mean Platelet Volume 9.9 fL (9.4-12.4); Neutrophils # 2.8 K/mcL (1.6-8.9); Platelet Count 271 K/mcL (140-400); Red Blood Count 3.15 M/mcL (4.19-5.50); Red Cell Distribution Width 18.6 % (11.5-14.5); Segmented Neutrophils % 55.3 %; White Blood Count 5.1 K/mcL (4.3-11.1)
[2021-09-22 05:55] LABS: Basophils % 0.8 %; Eosinophils # 0.1 K/mcL (0.0-0.6); Eosinophils % 2.3 %; Monocytes # 0.8 K/mcL (0.0-1.3); Monocytes % 15.4 %
[2021-09-22 06:25] LABS: VBG Ionized Calcium 1.13 mmol/L (1.15-1.35)
[2021-09-22] MEDS: Chlorhexidine Rinse 15 ML MOUTHWASH MM SCH ×2 (09:08→20:04)
[2021-09-22] MEDS: Aspirin 81 MG TAB.CHEW PO SCH (09:08)
[2021-09-22] MEDS: Pantoprazole 40 MG VIAL IVP SCH ×2 (09:09→20:04)
[2021-09-22] MEDS: Lactobacillus 1 EACH CAP.SPRINK GTUBE SCH ×2 (09:09→20:04)
[2021-09-22] MEDS: Sodium Bicarbonate 150 MEQ in D5% in Water 1,000 ML IVC SCH (11:44)
[2021-09-22 13:32] LABS: VBG Ionized Calcium 1.21 mmol/L (1.15-1.35)
[2021-09-22] MEDS ORDERED: Clinimix 5%-20% SOLUTION 2,000 ML with MVI, adult with vitamin K 10 ML, Sodium Acetat... IVC SCH (17:00)
[2021-09-22] MEDS ORDERED: Clinimix E 5%-20% SOLUTION 2,000 ML with MVI, adult with vitamin K 10 ML IVC SCH (17:00)
[2021-09-22] MEDS: MethylPREDNISolone 40 MG/ML VIAL IVP SCH (17:09)
[2021-09-22 19:08] LABS: VBG Ionized Calcium 1.31 mmol/L (1.15-1.35)
[2021-09-22] MEDS ORDERED: *HR* Heparin 5,000 UNIT/ML VIAL ONE (20:33)
[2021-09-22 23:00] LABS: VBG Ionized Calcium 1.21 mmol/L (1.15-1.35)
[2021-09-23] MEDS: MetroNIDAZOLE 500 MG/100 ML 500 MG/100 ML BAG IVPB SCH ×4 (00:01→23:42)
[2021-09-23] MEDS: SODIUM CITRATE 500 ML CRRT SCH ×4 (01:05→23:45)
[2021-09-23] MEDS: Phenylephrine 50 MG in 0.9 % Sodium Chloride 250 ML IVC SCH ×2 (01:38→08:15)
[2021-09-23] MEDS: PrismaSATE BGK 4/2.5 5,000 ML CRRT SCH ×6 (02:38→19:45)
[2021-09-23] MEDS: FentaNYL (PF) 1,000 MCG/100 ML IV.SOLN IVC SCH ×3 (03:15→17:25)
[2021-09-23] MEDS: Norepinephrine 8 MG/258 ML IV.SOLN IVC SCH (03:42)
[2021-09-23] MEDS: Insulin LISPRO 300 UNITS/3 ML VIAL SUBQ SCH ×6 (04:03→23:41)
[2021-09-23] MEDS: Artificial Tears SOLN 15 ML BOTTLE BOTH EYES SCH ×6 (04:03→23:41)
[2021-09-23] MEDS: Albumin Human 5% 12.5 GM/250 ML IV.SOLN IV SCH ×2 (04:06→11:54)
[2021-09-23 04:13] LABS: Hematocrit 21.5 % (37.5-50.1); Hemoglobin 6.9 g/dL (12.9-16.9); Mean Corpuscular HGB Conc 32.1 g/dL (31.6-35.5); Mean Corpuscular Hemoglobin 29.7 pg (28.0-33.3); Mean Corpuscular Volume 92.7 fL (83.0-100.0); Nucleated Red Blood Cells 0.4 /100 WBC (0); Platelet Count 201 K/mcL (140-400); Red Blood Count 2.32 M/mcL (4.19-5.50); Red Cell Distribution Width 18.6 % (11.5-14.5); White Blood Count 5.6 K/mcL (4.3-11.1)
[2021-09-23 04:29] LABS: Albumin 2.3 g/dL (3.5-5.7); Albumin/Globulin Ratio 1.6 (1.1-2.2); Bilirubin,Total 0.8 mg/dL (0.3-1.0); Calcium 8.7 mg/dL (8.6-10.3); Globulin 1.4 g/dL (2.4-3.5); Phosphorous 2.2 mg/dL (2.7-4.5); Potassium 3.8 mEq/L (3.5-5.1); Total Protein 3.7 g/dL (6.4-8.9)
[2021-09-23 04:51] LABS: ABG Base Excess 3 mEq/L (-2 to 3); ABG HCO3 29 mEq/L (21-27); ABG Oxygen Saturation 96 % (95-98); ABG PCO2 51 mmHg (35-45); ABG PH 7.36 pH Units (7.32-7.45); ABG PO2 89 mmHg (85-104); ABG TCO2 30 mEq/L (20-26); Blood Gas VT 490 cc
[2021-09-23 04:53] LABS: Hypochromasia Present (Not Present); Lymphocytes # 0.8 K/mcL (0.6-4.6); Monocytes # 0.2 K/mcL (0.0-1.3); Neutrophils # 4.6 K/mcL (1.6-8.9); Platelet Estimate Normal (Normal); Toxic Granulation Present (Not Present)
[2021-09-23 04:59] LABS: VBG Ionized Calcium 1.27 mmol/L (1.15-1.35)
[2021-09-23] MEDS: Calcium Chloride 4,000 MG in 0.9 % Sodium Chloride 1,000 ML CRRT SCH ×2 (05:15→17:22)
[2021-09-23] MEDS: *HR* Heparin 5,000 UNIT/ML VIAL SQ SCH ×3 (05:58→21:19)
[2021-09-23] MEDS: MethylPREDNISolone 40 MG/ML VIAL IVP SCH ×2 (06:01→17:25)
[2021-09-23] MEDS: Chlorhexidine Rinse 15 ML MOUTHWASH MM SCH ×2 (08:09→19:57)
[2021-09-23] MEDS: Pantoprazole 40 MG VIAL IVP SCH ×2 (08:09→19:57)
[2021-09-23] MEDS: Lactobacillus 1 EACH CAP.SPRINK GTUBE SCH ×2 (08:09→19:57)
[2021-09-23] MEDS: Aspirin 81 MG TAB.CHEW PO SCH (08:09)
[2021-09-23] MEDS: Sodium Bicarbonate 150 MEQ in D5% in Water 1,000 ML IVC SCH (08:11)
[2021-09-23] MEDS: 0.9 % Sodium Chloride 1,000 ML IVC SCH ×2 (08:13→18:29)
[2021-09-23 11:13] LABS: VBG Ionized Calcium 1.27 mmol/L (1.15-1.35)
[2021-09-23 15:55] LABS: VBG Ionized Calcium 0.82 mmol/L (1.15-1.35)
[2021-09-23] MEDS ORDERED: Clinimix E 5%-20% SOLUTION 2,000 ML with MVI, adult with vitamin K 10 ML IVC SCH (17:00)
[2021-09-23] MEDS ORDERED: Clinimix 5%-20% SOLUTION 2,000 ML with MVI, adult with vitamin K 10 ML, Sodium Acetat... IVC SCH (17:00)
[2021-09-23 19:07] LABS: VBG Ionized Calcium 1.29 mmol/L (1.15-1.35)
[2021-09-24] MEDS: PrismaSATE BGK 4/2.5 5,000 ML CRRT SCH ×8 (00:45→15:57)
[2021-09-24] MEDS: FentaNYL (PF) 1,000 MCG/100 ML IV.SOLN IVC SCH ×4 (01:25→20:30)
[2021-09-24 02:13] LABS: VBG Ionized Calcium 1.24 mmol/L (1.15-1.35)
[2021-09-24 04:15] LABS: Hemoglobin 6.6 g/dL (12.9-16.9); Mean Corpuscular Hemoglobin 30.8 pg (28.0-33.3); Mean Corpuscular Volume 93.5 fL (83.0-100.0); Mean Platelet Volume 10.1 fL (9.4-12.4); Nucleated Red Blood Cells 0.7 /100 WBC (0); Platelet Count 178 K/mcL (140-400); Red Blood Count 2.14 M/mcL (4.19-5.50); Red Cell Distribution Width 18.2 % (11.5-14.5)
[2021-09-24 04:23] LABS: White Blood Count 9.6 K/mcL (4.3-11.1)
[2021-09-24 04:32] LABS: ABG Base Excess 6 mEq/L (-2 to 3); ABG HCO3 30 mEq/L (21-27); ABG Oxygen Saturation 91 % (95-98); ABG PCO2 45 mmHg (35-45); ABG PH 7.44 pH Units (7.32-7.45); ABG PO2 59 mmHg (85-104); ABG TCO2 32 mEq/L (20-26); Blood Gas Modality ASSIST CONTROL; Blood Gas VT 490 cc
[2021-09-24 04:36] LABS: Anisocytosis 1+ (Not Present); Microcytosis Present (Not Present)
[2021-09-24 04:37] LABS: Lymphocytes # 1.2 K/mcL (0.6-4.6); Monocytes # 0.4 K/mcL (0.0-1.3); Neutrophils # 7.9 K/mcL (1.6-8.9); Platelet Estimate Normal (Normal)
[2021-09-24] MEDS: 0.9 % Sodium Chloride 1,000 ML IVC SCH (04:45)
[2021-09-24] MEDS: Calcium Chloride 4,000 MG in 0.9 % Sodium Chloride 1,000 ML CRRT SCH ×2 (04:45→16:12)
[2021-09-24 04:49] LABS: Albumin 2.1 g/dL (3.5-5.7); Albumin/Globulin Ratio 1.6 (1.1-2.2); Calcium 8.9 mg/dL (8.6-10.3); Globulin 1.3 g/dL (2.4-3.5); Magnesium 2.1 mg/dL (1.6-2.6); Phosphorous 1.8 mg/dL (2.7-4.5); Potassium 3.4 mEq/L (3.5-5.1); Total Protein 3.4 g/dL (6.4-8.9)
[2021-09-24] MEDS: Insulin LISPRO 300 UNITS/3 ML VIAL SUBQ SCH ×5 (05:16→19:54)
[2021-09-24] MEDS: Artificial Tears SOLN 15 ML BOTTLE BOTH EYES SCH ×5 (05:17→19:53)
[2021-09-24] MEDS: SODIUM CITRATE 500 ML CRRT SCH ×3 (05:17→17:05)
[2021-09-24] MEDS: MethylPREDNISolone 40 MG/ML VIAL IVP SCH ×2 (05:47→18:43)
[2021-09-24] MEDS: *HR* Heparin 5,000 UNIT/ML VIAL SQ SCH ×3 (05:47→22:30)
[2021-09-24] MEDS: Potassium Chloride 40 MEQ/200 ML BAG IVPB PRN (06:23)
[2021-09-24] MEDS: Norepinephrine 8 MG/258 ML IV.SOLN IVC SCH ×6 (07:38→15:33)
[2021-09-24] MEDS: Sodium Bicarbonate 150 MEQ in D5% in Water 1,000 ML IVC SCH (07:40)
[2021-09-24] MEDS: Chlorhexidine Rinse 15 ML MOUTHWASH MM SCH ×2 (07:53→19:38)
[2021-09-24] MEDS: Pantoprazole 40 MG VIAL IVP SCH ×2 (07:53→19:38)
[2021-09-24] MEDS: MetroNIDAZOLE 500 MG/100 ML 500 MG/100 ML BAG IVPB SCH ×2 (07:53→16:16)
[2021-09-24] MEDS: Lactobacillus 1 EACH CAP.SPRINK GTUBE SCH ×2 (07:53→19:38)
[2021-09-24] MEDS: Aspirin 81 MG TAB.CHEW PO SCH (07:53)
[2021-09-24 08:33] LABS: VBG Ionized Calcium 1.25 mmol/L (1.15-1.35)
[2021-09-24 12:28] LABS: Hematocrit 22.3 % (37.5-50.1); Hemoglobin 7.2 g/dL (12.9-16.9)
[2021-09-24 14:36] LABS: VBG Ionized Calcium 1.38 mmol/L (1.15-1.35)
[2021-09-24] MEDS ORDERED: Clinimix E 5%-15% SOLUTION 2,000 ML with MVI, adult with vitamin K 10 ML IVC SCH (17:00)
[2021-09-24 18:30] LABS: Hematocrit 22.3 % (37.5-50.1); Hemoglobin 7.2 g/dL (12.9-16.9)
[2021-09-24 18:30] LABS: VBG Ionized Calcium 1.25 mmol/L (1.15-1.35)
[2021-09-24] MEDS ORDERED: *HR* Heparin 5,000 UNIT/ML VIAL ONE ×2 (21:01→22:25)
[2021-09-25] MEDS: Artificial Tears SOLN 15 ML BOTTLE BOTH EYES SCH ×7 (01:16→23:04)
[2021-09-25] MEDS: MetroNIDAZOLE 500 MG/100 ML 500 MG/100 ML BAG IVPB SCH ×4 (01:18→23:04)
[2021-09-25] MEDS: FentaNYL (PF) 1,000 MCG/100 ML IV.SOLN IVC SCH ×4 (01:30→19:35)
[2021-09-25] MEDS: Insulin LISPRO 300 UNITS/3 ML VIAL SUBQ SCH ×7 (02:17→23:05)
[2021-09-25 03:39] LABS: Hematocrit 21.5 % (37.5-50.1); Hemoglobin 6.9 g/dL (12.9-16.9); Mean Corpuscular HGB Conc 32.1 g/dL (31.6-35.5); Mean Corpuscular Hemoglobin 30.7 pg (28.0-33.3); Mean Corpuscular Volume 95.6 fL (83.0-100.0); Mean Platelet Volume 10.2 fL (9.4-12.4); Nucleated Red Blood Cells 0.6 /100 WBC (0); Platelet Count 212 K/mcL (140-400); Red Blood Count 2.25 M/mcL (4.19-5.50); Red Cell Distribution Width 18.6 % (11.5-14.5); White Blood Count 14.6 K/mcL (4.3-11.1)
[2021-09-25 03:40] LABS: VBG Ionized Calcium 1.45 mmol/L (1.15-1.35)
[2021-09-25 03:49] LABS: Albumin 2.2 g/dL (3.5-5.7); Albumin/Globulin Ratio 1.6 (1.1-2.2); Bilirubin,Direct 0.4 mg/dL (0.0-0.2); Bilirubin,Indirect 0.3 mg/dL (0.0-1.0); Bilirubin,Total 0.7 mg/dL (0.3-1.0); Calcium 9.3 mg/dL (8.6-10.3); Globulin 1.4 g/dL (2.4-3.5); Phosphorous 2.6 mg/dL (2.7-4.5); Potassium 3.7 mEq/L (3.5-5.1); Total Protein 3.6 g/dL (6.4-8.9)
[2021-09-25 04:16] LABS: ABG Base Excess 9 mEq/L (-2 to 3); ABG HCO3 33 mEq/L (21-27); ABG Oxygen Saturation 92 % (95-98); ABG PCO2 43 mmHg (35-45); ABG PO2 58 mmHg (85-104); ABG TCO2 35 mEq/L (20-26); Blood Gas Modality AF; Blood Gas VT 450 cc
[2021-09-25 04:45] LABS: Anisocytosis 1+ (Not Present); Lymphocytes # 1.8 K/mcL (0.6-4.6); Monocytes # 0.6 K/mcL (0.0-1.3); Neutrophils # 12.3 K/mcL (1.6-8.9); Platelet Estimate Normal (Normal)
[2021-09-25] MEDS: MethylPREDNISolone 40 MG/ML VIAL IVP SCH ×2 (05:33→16:40)
[2021-09-25] MEDS: *HR* Heparin 5,000 UNIT/ML VIAL SQ SCH ×3 (05:33→21:04)
[2021-09-25] MEDS: Lactobacillus 1 EACH CAP.SPRINK GTUBE SCH ×2 (08:52→19:26)
[2021-09-25] MEDS: Aspirin 81 MG TAB.CHEW PO SCH (08:52)
[2021-09-25] MEDS: Chlorhexidine Rinse 15 ML MOUTHWASH MM SCH ×2 (08:53→19:26)
[2021-09-25] MEDS: Pantoprazole 40 MG VIAL IVP SCH ×2 (08:53→19:26)
[2021-09-25] MEDS ORDERED: Clinimix E 5%-15% SOLUTION 2,000 ML IVC SCH (17:00)
[2021-09-25] MEDS ORDERED: Perflutren Lipid Microsphere 1.3 ML in 0.9 % Sodium Chloride 8.7 ML IVP PRN (17:24)
[2021-09-25] MEDS: Norepinephrine 8 MG/258 ML IV.SOLN IVC SCH (19:17)
[2021-09-25] MEDS: Ipratropium/Albuterol Neb 3 ML IH SCH (23:29)
[2021-09-26] MEDS: Phenylephrine 50 MG in 0.9 % Sodium Chloride 250 ML IVC SCH (00:04)
[2021-09-26] MEDS: FentaNYL (PF) 1,000 MCG/100 ML IV.SOLN IVC SCH ×5 (00:25→22:36)
[2021-09-26] MEDS: Insulin LISPRO 300 UNITS/3 ML VIAL SUBQ SCH ×5 (03:48→20:19)
[2021-09-26] MEDS: Artificial Tears SOLN 15 ML BOTTLE BOTH EYES SCH ×5 (03:49→20:20)
[2021-09-26] MEDS: Ipratropium/Albuterol Neb 3 ML IH SCH ×4 (04:01→20:32)
[2021-09-26 04:08] LABS: ABG Base Excess 6 mEq/L (-2 to 3); ABG HCO3 30 mEq/L (21-27); ABG Oxygen Saturation 91 % (95-98); ABG PCO2 42 mmHg (35-45); ABG PH 7.46 pH Units (7.32-7.45); ABG PO2 58 mmHg (85-104); ABG TCO2 31 mEq/L (20-26); Blood Gas VT 450 cc
[2021-09-26 04:38] LABS: VBG Ionized Calcium 1.35 mmol/L (1.15-1.35)
[2021-09-26 04:39] LABS: Hematocrit 19.3 % (37.5-50.1); Hemoglobin 6.4 g/dL (12.9-16.9); Mean Corpuscular HGB Conc 33.2 g/dL (31.6-35.5); Mean Corpuscular Hemoglobin 31.2 pg (28.0-33.3); Mean Corpuscular Volume 94.1 fL (83.0-100.0); Mean Platelet Volume 10.2 fL (9.4-12.4); Nucleated Red Blood Cells 0.8 /100 WBC (0); Platelet Count 240 K/mcL (140-400); Red Blood Count 2.05 M/mcL (4.19-5.50); Red Cell Distribution Width 19.1 % (11.5-14.5)
[2021-09-26 04:43] LABS: White Blood Count 19.1 K/mcL (4.3-11.1)
[2021-09-26 04:58] LABS: Albumin 2.1 g/dL (3.5-5.7); Albumin/Globulin Ratio 1.4 (1.1-2.2); Bilirubin,Direct 0.3 mg/dL (0.0-0.2); Bilirubin,Indirect 0.3 mg/dL (0.0-1.0); Bilirubin,Total 0.6 mg/dL (0.3-1.0); Globulin 1.5 g/dL (2.4-3.5); Total Protein 3.6 g/dL (6.4-8.9)
[2021-09-26 05:00] LABS: Albumin 2.2 g/dL (3.5-5.7); Albumin/Globulin Ratio 1.7 (1.1-2.2); Bilirubin,Total 0.6 mg/dL (0.3-1.0); Globulin 1.3 g/dL (2.4-3.5); Phosphorous 3.4 mg/dL (2.7-4.5); Potassium 3.9 mEq/L (3.5-5.1); Total Protein 3.5 g/dL (6.4-8.9)
[2021-09-26] MEDS: MethylPREDNISolone 40 MG/ML VIAL IVP SCH ×2 (05:03→17:18)
[2021-09-26] MEDS: *HR* Heparin 5,000 UNIT/ML VIAL SQ SCH ×3 (05:04→21:41)
[2021-09-26 05:23] LABS: Anisocytosis 1+ (Not Present); Lymphocytes # 2.7 K/mcL (0.6-4.6); Monocytes # 1.2 K/mcL (0.0-1.3); Neutrophils # 14.9 K/mcL (1.6-8.9); Platelet Estimate Normal (Normal)
[2021-09-26] MEDS ORDERED: 0.9 % Sodium Chloride 250 ML IVC PRN (07:24)
[2021-09-26] MEDS ORDERED: 0.9 % Sodium Chloride 1,000 ML PRIME SCH (07:30)
[2021-09-26] MEDS: Chlorhexidine Rinse 15 ML MOUTHWASH MM SCH ×2 (08:23→20:20)
[2021-09-26] MEDS: Lactobacillus 1 EACH CAP.SPRINK GTUBE SCH ×2 (08:23→20:20)
[2021-09-26] MEDS: Aspirin 81 MG TAB.CHEW PO SCH (08:24)
[2021-09-26] MEDS: MetroNIDAZOLE 500 MG/100 ML 500 MG/100 ML BAG IVPB SCH (08:24)
[2021-09-26] MEDS: Sodium Bicarbonate 150 MEQ in D5% in Water 1,000 ML IVC SCH ×2 (08:25→09:06)
[2021-09-26] MEDS: Pantoprazole 40 MG VIAL IVP SCH (08:27)
[2021-09-26] MEDS: Norepinephrine 8 MG/258 ML IV.SOLN IVC SCH ×2 (09:05→09:06)
[2021-09-26] MEDS ORDERED: Potassium Chloride Elixir 20 MEQ/15 ML UDC GTUBE ONE (09:48)
[2021-09-26] MEDS ORDERED: 0.9 % Sodium Chloride 250 ML ONE (10:02)
[2021-09-26] MEDS ORDERED: Insulin DETEMIR 100 UNIT/ML X5UNITS SUBQ ONE (12:30)
[2021-09-26] MEDS ORDERED: Heparin 1,000 UNITS/500 mL 500 ML ONE (13:05)
[2021-09-26] MEDS ORDERED: *HR* Heparin 5,000 UNIT/ML VIAL ONE (13:36)
[2021-09-26 14:30] LABS: Hematocrit 22.7 % (37.5-50.1); Hemoglobin 7.2 g/dL (12.9-16.9)
[2021-09-26] MEDS: Insulin DETEMIR 100 UNIT/ML X5UNITS SUBQ SCH (20:20)
[2021-09-27] MEDS: Insulin LISPRO 300 UNITS/3 ML VIAL SUBQ SCH ×7 (00:13→23:06)
[2021-09-27] MEDS: Artificial Tears SOLN 15 ML BOTTLE BOTH EYES SCH ×7 (00:14→23:46)
[2021-09-27] MEDS: Phenylephrine 50 MG in 0.9 % Sodium Chloride 250 ML IVC SCH ×4 (01:07→21:42)
[2021-09-27] MEDS: Ipratropium/Albuterol Neb 3 ML IH SCH ×4 (03:00→20:37)
[2021-09-27 03:55] LABS: Hematocrit 21.6 % (37.5-50.1); Hemoglobin 7.1 g/dL (12.9-16.9); Mean Corpuscular HGB Conc 32.9 g/dL (31.6-35.5); Mean Corpuscular Hemoglobin 31.4 pg (28.0-33.3); Mean Corpuscular Volume 95.6 fL (83.0-100.0); Mean Platelet Volume 10.2 fL (9.4-12.4); Nucleated Red Blood Cells 0.5 /100 WBC (0); Platelet Count 240 K/mcL (140-400); Red Blood Count 2.26 M/mcL (4.19-5.50); Red Cell Distribution Width 19.3 % (11.5-14.5); White Blood Count 24.8 K/mcL (4.3-11.1)
[2021-09-27 04:15] LABS: Albumin 2.3 g/dL (3.5-5.7); Albumin/Globulin Ratio 1.5 (1.1-2.2); Bilirubin,Direct 0.3 mg/dL (0.0-0.2); Bilirubin,Indirect 0.3 mg/dL (0.0-1.0); Bilirubin,Total 0.6 mg/dL (0.3-1.0); Calcium 7.7 mg/dL (8.6-10.3); Globulin 1.5 g/dL (2.4-3.5); Magnesium 1.8 mg/dL (1.6-2.6); Phosphorous 3.7 mg/dL (2.7-4.5); Total Protein 3.8 g/dL (6.4-8.9)
[2021-09-27] MEDS ORDERED: Albumin 25% 25gram/100mL 25 GM/100 ML IV.SOLN IVPB ONE (04:20)
[2021-09-27] MEDS: FentaNYL (PF) 1,000 MCG/100 ML IV.SOLN IVC SCH ×3 (04:23→17:34)
[2021-09-27 04:34] LABS: Neutrophils # 15.4 K/mcL (1.6-8.9); Platelet Estimate Normal (Normal)
[2021-09-27] MEDS ORDERED: *HR* Metoprolol 5 MG/5 ML VIAL IVP ONE (04:57)
[2021-09-27] MEDS: *HR* Heparin 5,000 UNIT/ML VIAL SQ SCH ×3 (05:03→20:20)
[2021-09-27] MEDS: Pantoprazole 40 MG VIAL IVP SCH (05:39)
[2021-09-27] MEDS: Aspirin 81 MG TAB.CHEW PO SCH (08:00)
[2021-09-27] MEDS: Lactobacillus 1 EACH CAP.SPRINK GTUBE SCH ×2 (08:00→20:21)
[2021-09-27] MEDS: Chlorhexidine Rinse 15 ML MOUTHWASH MM SCH ×2 (08:00→20:21)
[2021-09-27] MEDS: Insulin DETEMIR 100 UNIT/ML X5UNITS SUBQ SCH ×2 (09:19→20:23)
[2021-09-27 10:22] LABS: ABG Base Excess 5 mEq/L (-2 to 3); ABG HCO3 31 mEq/L (21-27); ABG Oxygen Saturation 94 % (95-98); ABG PCO2 50 mmHg (35-45); ABG PO2 74 mmHg (85-104); ABG TCO2 33 mEq/L (20-26); Blood Gas Modality ASSIST CONTROL; Blood Gas VT 450 cc
[2021-09-27] MEDS ORDERED: Bumetanide 1 MG/4 ML VIAL IVP ONE (14:15)
[2021-09-27] MEDS: *HR* Metoprolol 5 MG/5 ML VIAL IVP PRN (22:56)
[2021-09-28] MEDS: FentaNYL (PF) 1,000 MCG/100 ML IV.SOLN IVC SCH ×3 (01:18→23:27)
[2021-09-28] MEDS: Phenylephrine 50 MG in 0.9 % Sodium Chloride 250 ML IVC SCH ×3 (03:20→22:52)
[2021-09-28 03:23] LABS: Hemoglobin 6.5 g/dL (12.9-16.9)
[2021-09-28 03:24] LABS: Hematocrit 20.2 % (37.5-50.1); Mean Corpuscular HGB Conc 32.2 g/dL (31.6-35.5); Mean Corpuscular Hemoglobin 32.5 pg (28.0-33.3); Mean Platelet Volume 10.6 fL (9.4-12.4); Nucleated Red Blood Cells 5.2 /100 WBC (0); Platelet Count 279 K/mcL (140-400); Red Cell Distribution Width 21.1 % (11.5-14.5); White Blood Count 27.4 K/mcL (4.3-11.1)
[2021-09-28 03:36] LABS: VBG Ionized Calcium 1.17 mmol/L (1.15-1.35)
[2021-09-28 03:42] LABS: Albumin 2.6 g/dL (3.5-5.7); Albumin/Globulin Ratio 1.6 (1.1-2.2); Bilirubin,Direct 0.3 mg/dL (0.0-0.2); Bilirubin,Indirect 0.3 mg/dL (0.0-1.0); Bilirubin,Total 0.6 mg/dL (0.3-1.0); Calcium 7.7 mg/dL (8.6-10.3); Globulin 1.6 g/dL (2.4-3.5); Magnesium 2.1 mg/dL (1.6-2.6); Phosphorous 5.2 mg/dL (2.7-4.5); Potassium 4.1 mEq/L (3.5-5.1); Total Protein 4.2 g/dL (6.4-8.9)
[2021-09-28] MEDS: Ipratropium/Albuterol Neb 3 ML IH SCH ×4 (04:02→19:48)
[2021-09-28] MEDS: Artificial Tears SOLN 15 ML BOTTLE BOTH EYES SCH ×6 (04:04→23:57)
[2021-09-28] MEDS: Insulin LISPRO 300 UNITS/3 ML VIAL SUBQ SCH ×5 (04:04→21:23)
[2021-09-28] MEDS ORDERED: 0.9 % Sodium Chloride 250 ML IVC SCH (04:30)
[2021-09-28 04:39] LABS: ABG Base Excess 3 mEq/L (-2 to 3); ABG HCO3 28 mEq/L (21-27); ABG Oxygen Saturation 95 % (95-98); ABG PCO2 41 mmHg (35-45); ABG PH 7.44 pH Units (7.32-7.45); ABG PO2 75 mmHg (85-104); ABG TCO2 29 mEq/L (20-26); Blood Gas VT 450 cc
[2021-09-28 04:56] LABS: Eosinophils # 1.1 K/mcL (0.0-0.6); Lymphocytes # 12.6 K/mcL (0.6-4.6); Monocytes # 2.2 K/mcL (0.0-1.3); Neutrophils # 11.5 K/mcL (1.6-8.9); Platelet Estimate Normal (Normal)
[2021-09-28] MEDS: Lactobacillus 1 EACH CAP.SPRINK GTUBE SCH ×2 (07:55→21:41)
[2021-09-28] MEDS: Aspirin 81 MG TAB.CHEW PO SCH (07:55)
[2021-09-28] MEDS: Pantoprazole 40 MG VIAL IVP SCH (07:55)
[2021-09-28] MEDS: Chlorhexidine Rinse 15 ML MOUTHWASH MM SCH ×2 (07:55→21:41)
[2021-09-28] MEDS: Insulin DETEMIR 100 UNIT/ML X5UNITS SUBQ SCH ×2 (08:31→21:42)
[2021-09-28] MEDS: *HR* Heparin 5,000 UNIT/ML VIAL SQ SCH ×3 (08:32→21:41)
[2021-09-28] MEDS ORDERED: Albumin 25% 25gram/100mL 25 GM/100 ML IV.SOLN IVPB PRN (10:25)
[2021-09-28] MEDS ORDERED: 0.9 % Sodium Chloride 250 ML IVC PRN (10:25)
[2021-09-28] MEDS ORDERED: *HR* Heparin 10,000 UNIT/10 ML VIAL IV PRN (10:25)
[2021-09-28] MEDS ORDERED: 0.9 % Sodium Chloride 1,000 ML PRIME SCH (10:30)
[2021-09-28 12:03] LABS: Hematocrit 23.3 % (37.5-50.1); Hemoglobin 7.2 g/dL (12.9-16.9)
[2021-09-28] MEDS ORDERED: Albumin Human 5% 25.0 GM/500 ML IV.SOLN ONE (14:10)
[2021-09-28] MEDS: Norepinephrine 4 MG/254 ML IV.SOLN IVC SCH ×2 (14:27→22:32)
[2021-09-28 19:51] LABS: Hematocrit 22.3 % (37.5-50.1)
[2021-09-29] MEDS: Insulin LISPRO 300 UNITS/3 ML VIAL SUBQ SCH ×6 (00:39→20:15)
[2021-09-29] MEDS: Ipratropium/Albuterol Neb 3 ML IH SCH ×4 (03:22→19:50)
[2021-09-29] MEDS: Artificial Tears SOLN 15 ML BOTTLE BOTH EYES SCH ×5 (03:24→20:15)
[2021-09-29 03:47] LABS: ABG Base Excess 0 mEq/L (-2 to 3); ABG HCO3 28 mEq/L (21-27); ABG Oxygen Saturation 96 % (95-98); ABG PCO2 70 mmHg (35-45); ABG PH 7.21 pH Units (7.32-7.45); ABG PO2 98 mmHg (85-104); ABG TCO2 30 mEq/L (20-26); Blood Gas Modality AF; Blood Gas VT 450 cc
[2021-09-29 03:55] LABS: Hematocrit 23.6 % (37.5-50.1); Mean Corpuscular HGB Conc 29.7 g/dL (31.6-35.5); Mean Corpuscular Hemoglobin 30.4 pg (28.0-33.3); Mean Corpuscular Volume 102.6 fL (83.0-100.0); Mean Platelet Volume 10.3 fL (9.4-12.4); Nucleated Red Blood Cells 1.3 /100 WBC (0); Platelet Count 257 K/mcL (140-400); Red Cell Distribution Width 20.9 % (11.5-14.5); White Blood Count 25.7 K/mcL (4.3-11.1)
[2021-09-29] MEDS: FentaNYL (PF) 1,000 MCG/100 ML IV.SOLN IVC SCH ×2 (04:05→10:11)
[2021-09-29 04:09] LABS: Albumin 2.7 g/dL (3.5-5.7); Albumin/Globulin Ratio 1.4 (1.1-2.2); Bilirubin,Direct 0.3 mg/dL (0.0-0.2); Bilirubin,Indirect 0.3 mg/dL (0.0-1.0); Bilirubin,Total 0.6 mg/dL (0.3-1.0); Calcium 7.4 mg/dL (8.6-10.3); Globulin 1.9 g/dL (2.4-3.5); Potassium 5.1 mEq/L (3.5-5.1); Total Protein 4.6 g/dL (6.4-8.9)
[2021-09-29] MEDS: Pantoprazole 40 MG VIAL IVP SCH (05:41)
[2021-09-29] MEDS: *HR* Heparin 5,000 UNIT/ML VIAL SQ SCH ×3 (05:41→21:08)
[2021-09-29 05:44] LABS: Lymphocytes # 4.1 K/mcL (0.6-4.6); Monocytes # 0.8 K/mcL (0.0-1.3); Neutrophils # 18.8 K/mcL (1.6-8.9); Platelet Estimate Normal (Normal); Reactive Lymphocytes Present (Not Present)
[2021-09-29] MEDS: Phenylephrine 50 MG in 0.9 % Sodium Chloride 250 ML IVC SCH ×3 (06:37→22:00)
[2021-09-29] MEDS: Norepinephrine 4 MG/254 ML IV.SOLN IVC SCH ×3 (07:46→20:30)
[2021-09-29] MEDS: Aspirin 81 MG TAB.CHEW PO SCH (08:47)
[2021-09-29] MEDS: Lactobacillus 1 EACH CAP.SPRINK GTUBE SCH ×2 (08:47→20:15)
[2021-09-29] MEDS: Chlorhexidine Rinse 15 ML MOUTHWASH MM SCH ×2 (08:47→20:15)
[2021-09-29] MEDS: Insulin DETEMIR 100 UNIT/ML X5UNITS SUBQ SCH ×2 (08:58→20:16)
[2021-09-29] MEDS: Albumin 25% 25gram/100mL 25 GM/100 ML IV.SOLN IVPB SCH ×2 (11:55→20:15)
[2021-09-29] MEDS: Furosemide 20 MG/2 ML VIAL IVP SCH ×3 (12:01→23:24)
[2021-09-29] MEDS: *HR* Dextrose 50 % in Water (Syg) 50 ML SYRINGE IVP PRN ×2 (17:15→22:22)
[2021-09-29] MEDS: *HR* Metoprolol 5 MG/5 ML VIAL IVP PRN (17:59)
[2021-09-30] MEDS: Artificial Tears SOLN 15 ML BOTTLE BOTH EYES SCH ×5 (00:48→17:51)
[2021-09-30] MEDS: Insulin LISPRO 300 UNITS/3 ML VIAL SUBQ SCH ×6 (00:49→19:44)
[2021-09-30] MEDS ORDERED: D5% in Water 1,000 ML IVC PRN (03:17)
[2021-09-30] MEDS: *HR* Dextrose 50 % in Water (Syg) 50 ML SYRINGE IVP PRN ×3 (03:30→12:06)
[2021-09-30 03:33] LABS: Basophils % 0.2 %; Eosinophils # 0.4 K/mcL (0.0-0.6); Eosinophils % 3.2 %; Hemoglobin 6.5 g/dL (12.9-16.9); Immature Granulocytes % 4.7 % (0-4); Lymphocytes # 2.5 K/mcL (0.6-4.6); Lymphocytes % 17.8 %; Mean Corpuscular Hemoglobin 30.8 pg (28.0-33.3); Mean Corpuscular Volume 99.5 fL (83.0-100.0); Mean Platelet Volume 10.5 fL (9.4-12.4); Monocytes % 6.8 %; Neutrophils # 9.4 K/mcL (1.6-8.9); Nucleated Red Blood Cells 0.3 /100 WBC (0); Platelet Count 239 K/mcL (140-400); Red Blood Count 2.11 M/mcL (4.19-5.50); Segmented Neutrophils % 67.3 %; White Blood Count 13.9 K/mcL (4.3-11.1)
[2021-09-30 03:37] LABS: VBG Ionized Calcium 1.01 mmol/L (1.15-1.35)
[2021-09-30 03:52] LABS: Albumin 2.8 g/dL (3.5-5.7); Albumin/Globulin Ratio 1.5 (1.1-2.2); Bilirubin,Direct 0.6 mg/dL (0.0-0.2); Bilirubin,Indirect 0.6 mg/dL (0.0-1.0); Bilirubin,Total 1.2 mg/dL (0.3-1.0); Calcium 7.5 mg/dL (8.6-10.3); Globulin 1.9 g/dL (2.4-3.5); Magnesium 1.9 mg/dL (1.6-2.6); Phosphorous 4.5 mg/dL (2.7-4.5); Potassium 4.1 mEq/L (3.5-5.1); Total Protein 4.7 g/dL (6.4-8.9)
[2021-09-30] MEDS: Ipratropium/Albuterol Neb 3 ML IH SCH ×4 (04:11→19:16)
[2021-09-30 04:21] LABS: ABG Base Excess 2 mEq/L (-2 to 3); ABG HCO3 25 mEq/L (21-27); ABG Oxygen Saturation 96 % (95-98); ABG PCO2 32 mmHg (35-45); ABG PH 7.51 pH Units (7.32-7.45); ABG PO2 72 mmHg (85-104); ABG TCO2 26 mEq/L (20-26); Blood Gas Modality AF; Blood Gas VT 450 cc
[2021-09-30] MEDS: Albumin 25% 25gram/100mL 25 GM/100 ML IV.SOLN IVPB SCH (04:51)
[2021-09-30] MEDS: *HR* Heparin 5,000 UNIT/ML VIAL SQ SCH ×3 (05:51→19:44)
[2021-09-30] MEDS: Pantoprazole 40 MG VIAL IVP SCH (05:51)
[2021-09-30] MEDS: Calcium Gluconate 1gm/50mL 1 GM/50 ML BAG IVPB PRN (05:53)
[2021-09-30] MEDS: Phenylephrine 50 MG in 0.9 % Sodium Chloride 250 ML IVC SCH ×2 (06:20→18:04)
[2021-09-30] MEDS ORDERED: 0.9 % Sodium Chloride 250 ML IVC SCH (07:00)
[2021-09-30] MEDS: Insulin DETEMIR 100 UNIT/ML X5UNITS SUBQ SCH (07:37)
[2021-09-30 07:55] VITALS: O2SAT 100
[2021-09-30] MEDS ORDERED: 0.9 % Sodium Chloride 250 ML ONE (09:22)
[2021-09-30] MEDS: Lactobacillus 1 EACH CAP.SPRINK GTUBE SCH ×2 (09:46→19:44)
[2021-09-30] MEDS: Aspirin 81 MG TAB.CHEW PO SCH (09:46)
[2021-09-30] MEDS: Chlorhexidine Rinse 15 ML MOUTHWASH MM SCH ×2 (09:47→19:44)
[2021-09-30] MEDS ORDERED: Furosemide 20 MG/2 ML VIAL IVP ONE (13:05)
[2021-09-30] MEDS ORDERED: D10% in Water 500 ML IVC SCH (13:15)
[2021-09-30 15:43] VITALS: TEMP 99.2
[2021-09-30] MEDS ORDERED: *HR* LORazepam 2 MG/ML VIAL IVP PRN (17:27)
[2021-09-30] MEDS ORDERED: Atropine Sulfate 1% 40 DROP/2 ML BOTTLE SL PRN (17:27)
[2021-09-30] MEDS: FentaNYL (PF) 1,000 MCG/100 ML IV.SOLN IVC SCH (19:40)
[2021-09-30] MEDS: Norepinephrine 4 MG/254 ML IV.SOLN IVC SCH (19:40)
[2021-09-30 19:43] VITALS: BP 97/42
[2021-09-30 19:56] VITALS: PULSE 112
== END 2021-09-30 20:53 | disposition expired | DRG 870 ==
LOC: EMEROOARM 14:30 → 3ANU 14:30 → SUATTDRO 21:20 → 3ANU 22:22 → SUATTDRO 09-11 12:20 → 2NNU 09-17 21:45 → ICNU 09-18 07:24
PROVIDERS: ADMIT Internal Medicine; ATTEND Internal Medicine